=== PATIENT | female | born 1980 | race African-American/Black ===

== ENCOUNTER 2024-08-20 23:15 | Inpatient (IN) | payer MEDICARE, MEDICAID, SELFPAY ==
--- NOTE | ~2024-08-20 | XR_ITS ---
EXAMINATION: XR chest 1V portable DATE: 08/20/2024 23:49 INDICATION: Shortness of breath. TECHNIQUE: A single frontal view of the chest was obtained. COMPARISON: None. FINDINGS: The lung volumes are small. There are airspace opacities in the perihilar regions and lower lung zones. No pleural effusion or pneumothorax. The heart size is normal. Shrapnel overlies the nec k and right supraclavicular region. IMPRESSION: 1. Small lung volumes with airspace opacities in the perihilar regions and lower lung zones, consiste nt with atelectasis versus pneumonia. 2. Shrapnel overlying the neck and right supraclavicular region. Reviewed, dictated and finalized at location A. PACKER IMPRESSION: 1. Small lung volumes with airspace opacities in the perihilar regions and lowe r lung zones, consistent with atelectasis versus pneumonia. 2. Shrapnel overlying the neck and right supraclavicular region.
--- NOTE | ~2024-08-20 | XR_ITS ---
EXAMINATION: XR abdomen/kub 1V DATE: 08/21/2024 18:00 INDICATION: Adynamic ileus. TECHNIQUE: A supine view of the abdomen on 2 radiographs was obtained. COMPARISON: None. FINDINGS: There are no dilated loops of bowel. There is a small volume of stool in the colon. IMPRESSION: 1. Normal bowel gas pattern. Reviewed, dictated and finalized at location A. R MOLDER
[2024-08-20 23:21] VITALS: BP 153/95; PULSE 83; RESP 22; O2SAT 100
[2024-08-20 23:26] LABS: Glucose Point of Care 72 mg/dl (65-105)
[2024-08-21] VITALS (37 sets, daily range): BP systolic 99–188; BP diastolic 56–101; PULSE 66–99; RESP 7–20; TEMP 36.4–37.5; O2SAT 94–100; BMI 35.9
--- NOTE | 2024-08-21 00:52 | ED.GENADULT ---
HPI - General Adult General Chief complaint: Unspecified Stated complaint: leg pain Time Seen by Provider: 08/20/24 23:25 History of Present Illness HPI narrative: Patient is a 43-year-old female who presents to the emergency department this morning with multiple complaints. Patient states that [facility] and due to insurance issues and has not had a her dialysis for an entire week stating that she missed at least 3 sessions. Patient has bilateral lower extremity amputations and is complaining of some phantom pain. Patient also states that she has been having generalized weakness, and flu-like symptoms. Admits to nausea, vomiting and diarrhea and shortness of breath. Patient states that she does not make urine. Denies any chest pain. Denies any additional symptoms or concerns at this time. Related Data Allergies Allergy/AdvReac Type Severity Reaction Status Date / Time oxycodone AdvReac Hives Verified 08/20/24 23:26 Review of Systems Review of Systems: All systems are reviewed and are negative unless stated otherwise in the HPI. [facility] Family History Family History (Updated 08/21/24 @ 04:35 by Wes Killian RN) Father Lung cancer Mother Breast cancer Exam Narrative: General: Alert, awake, afebrile, poor hygiene. HEENT: PERRL, no rhinorrhea, no post nasal drip, oropharynx clear. Neck: Trachea midline, no JVD, no lymphadenopathy. Cardiovascular: Regular rate and rhythm, no murmurs, rubs or gallops, no peripheral edema. Respiratory: Clear to auscultation bilaterally, no tachypnea, no wheezing, no rhonchi, no rubs, no respiratory distress. Abdomen: Soft, nontender, nondistended, no rebound, no guarding, no peritoneal signs. Musculoskeletal: Bilateral lower extremity amputations. Skin: Chronic wounds to the bilateral lower extremity. Psychiatric: Alert and oriented, normal behavior and judgment for situation. Neurological: Alert and oriented to person, place, and time. Follows all commands. No focal deficits, speech is clear and fluent. Course Vital Signs Vital signs: Vital Signs Pulse Rate 83 08/20/24 23:21 Respiratory Rate 22 H 08/20/24 23:21 Blood Pressure 153/95 H 08/20/24 23:21 Pulse Oximetry 100 08/20/24 23:21 Oxygen Delivery Room Air 08/20/24 23:21 Pulse Rate 78 08/21/24 04:16 Respiratory Rate 12 08/21/24 04:16 Blood Pressure 100/63 08/21/24 04:16 Pulse Oximetry 99 08/21/24 04:16 Oxygen Delivery Room Air 08/20/24 23:21 Medical Decision Making MDM Narrative Medical decision making narrative: The patient was evaluated by myself in the emergency department. History is obtained from patient who is an independent historian and physical exam was performed. External medical records were reviewed at this time. Patient was administered oral Tylenol 1000mg. EKG was obtained at this time internally interpreted by me revealing sinus rhythm rate of 80 beats per minute, no evidence of acute ischemia. EKG pending official cardiology read. Laboratory results obtained revealing BUN 68, creatinine 10.7, potassium 5.2. Imaging studies obtained included CXR which was independently interpreted by me revealing bilateral perihilar and lower lung field opacities consistent with atelectasis versus pneumonia, which is pending final radiology interpretation. At this time patient was started on antibiotics to cover her for pneumonia with oral doxycycline and cefuroxime. Multiple attempts to obtain an IV were unsuccessful. Patient informed RN that she normally requires PICC line placement. Differential diagnosis considerations include fluid overload, hyperkalemia, acute viral syndrome. Comorbidities impacting this visit include end-stage renal disease on HD. I have evaluated and discussed social determinants of health with the patient that could potentially impact subsequent diagnosis and treatment plans. On repeat assessment of the patient, reevaluation revealed that the patient is doing well and is in no acute distress. Patient symptoms have improved since she arrived to our emergency department. Repeat vital signs were all reviewed and noted to be stable. Differential diagnosis and treatment plan were discussed with the patient at bedside. Patient agrees with discussion and after shared medical decision making agrees with admission. All questions were answered to the patient's satisfaction. Case was discussed with the on-call hospitalist Dr. Stanford at 0330 regarding admission for nephrology consultation as patient will need hemodialysis in the morning. She is aware the patient does not have an IV. Patient does have a dialysis fistula to her right upper extremity. Dr. Batista was paged at 0300 to be notified regarding patient needing hemodialysis. Formal consultation placed in the chart. Patient was admitted in stable condition. Vital Signs Vital Signs: Vital Signs Pulse Rate 83 08/20/24 23:21 Respiratory Rate 22 H 08/20/24 23:21 Blood Pressure 153/95 H 08/20/24 23:21 Pulse Oximetry 100 08/20/24 23:21 Oxygen Delivery Room Air 08/20/24 23:21 Pulse Rate 78 08/21/24 04:16 Respiratory Rate 12 08/21/24 04:16 Blood Pressure 100/63 08/21/24 04:16 Pulse Oximetry 99 08/21/24 04:16 Oxygen Delivery Room Air 08/20/24 23:21 Lab Data 08/21/24 02:33 08/21/24 02:33 Labs: Lab Results 08/20/24 08/21/24 Range/Units 23:24 02:33 WBC 7.6 (4.5-10.0) K/mm3 RBC 4.14 L (4.2-5.4) M/mm3 Hgb 12.8 (12.0-15.0) g/dL Hct 39.3 (37.0-47.0) % MCV 94.9 (80-100) fl MCH 30.9 (26-34) pg MCHC 32.6 (32-36) g/dl RDW 13.1 (11.5-14.5) % Plt Count 239 (150-375) k/mm3 MPV 9.7 (7.4-10.4) fl Immature Gran % (Auto) 0.4 (0-0.5) % Neut % (Auto) 61.5 (45.5-73.1) % Lymph % (Auto) 24.0 (18.3-44.2) % [place] % (Auto) 7.5 (2.6-8.5) % Eos % (Auto) 6.1 H (0-4.4) % Baso % (Auto) 0.5 (0.2-1.2) % Lymph # (Auto) 1.81 (0.9-3.2) K/mm3 [place] # (Auto) 0.6 (0.1-0.6) K/mm3 Eos # (Auto) 0.5 H (0-0.3) K/mm3 Baso # (Auto) 0.0 (0.0-0.1) K/mm3 Abs Immat Gran (auto) 0.03 (0.00-0.031) K/mm3 Absolute Neuts (auto) 4.6 (1.3-6.7) K/mm3 Absolute Nucleated RBC 0.000 (0.0-0.012) K/mm3 Nucleated RBC % 0.0 (0.0-0.2) % Sodium 136 L (137-145) mmol/L Potassium 5.2 H (3.4-5.0) mmol/L Chloride 101 (98-107) mmol/L Carbon Dioxide 23 (22-30) mmol/L Anion Gap 12 (4-12) mmol/L BUN 68 H (7-17) mg/dL Creatinine 10.70 H (0.7-1.0) mg/dL Estim Creat Clear Calc 8 ml/min Estimated GFR 5 L (59 - ) Glucose 86 (65-110) mg/dL POC Capillary Glucose 72 (65-105) mg/dl Lactic Acid 1.1 (0.7-2.0) mmol/L Calcium 9.8 (8.4-10.2) mg/dL Magnesium 2.1 (1.6-2.3) mg/dL Total Bilirubin 0.6 (0.2-1.3) mg/dL AST 24 (14-36) U/L ALT 13 (6-35) U/L Alkaline Phosphatase 238 H (38-126) U/L Total Protein 8.0 (6.3-8.2) g/dL Albumin 3.9 (3.5-5.1) g/dL Lipase 123 (23-300) U/L Serum HCG, Qual Negative Influenza A (RT-PCR) Negative (Negative) Influenza B (RT-PCR) Negative (Negative) SARS-CoV-2 RNA (RT-PCR) Negative (Negative) Discharge Plan Discharge Clinical Impression: End-stage renal disease on hemodialysis, Medical non-compliance Patient Disposition: Still a Patient Condition: Stable Time of Disposition: 03:52
--- NOTE | 2024-08-21 01:26 | ECG_ITS ---
Test Date: 2024-08-21 01:26:46 Measurements Intervals [place] Rate: 80 P: 40 MA: 186 QRS: 6 QRSD: 69 T: 54 QT: 357 QTc: 414 Interpretive Statements SINUS RHYTHM DELAYED PRECORDIAL R/S TRANSITION BORDERLINE ST ABNORMALITY- HIGH LATERAL LEADS BASELINE ARTIFACT- I, II BORDERLINE ECG No previous ECG available for comparison Electronically Signed On 08-21-2024 07:36:16 CRO by Ranjit Gautam D.O.
[2024-08-21 02:39] LABS: Basophils Percent Auto 0.5 % (0.2-1.2); Eosinophils Absolute Auto 0.5 K/mm3 (0-0.3); Eosinophils Percent Auto 6.1 % (0-4.4); Hematocrit 39.3 % (37.0-47.0); Hemoglobin 12.8 g/dL (12.0-15.0); Immature Granulocyte Absolute 0.03 K/mm3 (0.00-0.031); Immature Granulocyte Percent A 0.4 % (0-0.5); Lymphocytes Absolute Auto 1.81 K/mm3 (0.9-3.2); Mean Corpuscular HGB Conc 32.6 g/dl (32-36); Mean Corpuscular Hemoglobin 30.9 pg (26-34); Mean Corpuscular Volume 94.9 fl (80-100); Mean Platelet Volume 9.7 fl (7.4-10.4); Monocytes Absolute Auto 0.6 K/mm3 (0.1-0.6); Monocytes Percent Auto 7.5 % (2.6-8.5); Neutrophils Absolute Auto 4.6 K/mm3 (1.3-6.7); Neutrophils Percent Auto 61.5 % (45.5-73.1); Platelet Count Result 239 k/mm3 (150-375); Red Blood Count 4.14 M/mm3 (4.2-5.4); Red Cell Distribution Width 13.1 % (11.5-14.5); White Blood Count 7.6 K/mm3 (4.5-10.0)
--- NOTE | 2024-08-21 02:40 | PC.NURSE ---
pt does not make urine, [facility] notified.
--- NOTE | 2024-08-21 02:40 | PC.NURSE ---
this rn attempted iv x 4, with 2 other rn attempting as well. no success. pavel rubin aware.
[2024-08-21 02:52] LABS: Albumin Level 3.9 g/dL (3.5-5.1); Bilirubin,Total 0.6 mg/dL (0.2-1.3); Blood Urea Nitrogen 68 mg/dL (7-17); Calcium 9.8 mg/dL (8.4-10.2); Glucose 86 mg/dL (65-110); Lactic Acid Reflex 1.1 mmol/L (0.7-2.0); Magnesium 2.1 mg/dL (1.6-2.3)
[2024-08-21 02:53] LABS: Alanine Aminotransferase 13 U/L (6-35); Alkaline Phosphatase 238 U/L (38-126); Anion Gap 12 mmol/L (4-12); Aspartate Amino Transferase 24 U/L (14-36); Carbon Dioxide 23 mmol/L (22-30); Chloride 101 mmol/L (98-107); Lipase 123 U/L (23-300); Potassium 5.2 mmol/L (3.4-5.0); Sodium 136 mmol/L (137-145)
[2024-08-21 03:00] LABS: Estimated CRCL calculation 8 ml/min; Estimated Glomerular Filt Rate 5
[2024-08-21 03:10] LABS: SPREG INTERNAL CONTROL Positive; Serum Qual hCG Negative
--- NOTE | 2024-08-21 03:23 | PM.IMHP ---
H&P: HPI History of Present Illness Date/Time: 08/21/24 03:23 Chief Complaint: Weakness Narrative: This is a 43-year-old female with past medical history significant for end-stage renal disease on hemodialysis, peripheral vascular disease bilateral [id number] amputations, peripheral neuropathy, chronic pain syndrome. Patient presents to the emergency room due to generalized weakness has not had dialysis treatment in the last week or so recently discharged from detention. At the time of my visit patient is complaining of bilateral stump pain. Preliminary workup was significant for chest x-ray with infiltrates. Chemistry panel showed BUN of 68 creatinine of 10 potassium 5.2 Patient has been admitted for further evaluation management. EXAMINATION: XR chest 1V portable DATE: 08/20/2024 23:49 INDICATION: Shortness of breath. TECHNIQUE: A single frontal view of the chest was obtained. COMPARISON: None. FINDINGS: The lung volumes are small. There are airspace opacities in the perihilar regions and lower lung zones. No pleural effusion or pneumothorax. The heart size is normal. Shrapnel overlies the neck and right supraclavicular region. IMPRESSION: 1. Small lung volumes with airspace opacities in the perihilar regions and lower lung zones, consistent with atelectasis versus pneumonia. 2. Shrapnel overlying the neck and right supraclavicular region. Review of Systems Review of Systems: Bilateral stump pain, generalized weakness, has not been to dialysis in the last week or so [facility] Past Medical History Medical History (Updated 08/21/24 @ 18:12 by Xavier Valencia MD) Diabetes mellitus Family History Family History (Updated 08/21/24 @ 04:35 by Wes Killian RN) Father Lung cancer Mother Breast cancer Social History Social History Additional smoking assessment comments: patient vapes Alcohol intake: never Substance use: never Substance use type: does not use Do You Feel Safe in your Home?: Yes Lack of Transportation: YES Lack of Food: Often True Current Housing: I Do Not Have Housing Concerned About Future Housing: YES Difficulty Paying Gas/Electric Bills: No Difficulty Paying for Meds: YES Currently Unemployed: YES Education: Decline to Answer Difficulty w/ Childcare or Family Care: No Spiritual care concerns: No Meds Home Medications and Allergies Home Medications Medication Instructions Recorded Confirmed Type Abilify 5 mg PO DAILY 08/21/24 08/21/24 History Colace Clear 50 mg PO BID 08/21/24 08/21/24 History Milk of Magnesia 30 ml PO DAILY PRN Constipation 08/21/24 08/21/24 History Protonix 40 mg PO DAILY 08/21/24 08/21/24 History Renal Multivitamin Formula 1 tablet PO DAILY 08/21/24 08/21/24 History Saccharomyces boulardii 250 mg PO BID 08/21/24 08/21/24 History Sinemet 1 tablet PO BID 08/21/24 08/21/24 History acetaminophen 1,000 mg PO DAILY 08/21/24 08/21/24 History albuterol sulfate 1 vial inhalation Q6H PRN sob 08/21/24 08/21/24 History atorvastatin 40 mg PO DAILY 08/21/24 08/21/24 History calcium carbonate 1 tablet PO Q8H PRN Indigestion 08/21/24 08/21/24 History cinacalcet 30 mg PO 3XW 08/21/24 08/21/24 History clopidogrel 75 mg PO DAILY 08/21/24 08/21/24 History guaifenesin 10 ml PO Q6H PRN Cough 08/21/24 08/21/24 History loperamide 2 mg PO Q4H PRN Diarrhea 08/21/24 08/21/24 History loratadine 10 mg PO Q48H 08/21/24 08/21/24 History magnesium hydroxide 311 mg PO DAILY PRN Constipation 08/21/24 08/21/24 History melatonin 5 mg PO HS 08/21/24 08/21/24 History midodrine 10 mg PO Q6H PRN Hypotension 08/21/24 08/21/24 History mirtazapine 30 mg PO HS 08/21/24 08/21/24 History morphine 15 mg PO Q4H 08/21/24 08/21/24 History naloxone 4 mg intranasal Q2-3M 08/21/24 08/21/24 History nystatin 1 applic topical Q12H 08/21/24 08/21/24 History ondansetron 4 mg PO Q4H PRN Nausea 08/21/24 08/21/24 History polyethylene glycol 3350 17 g PO DAILY PRN Constipation 08/21/24 08/21/24 History pregabalin 25 mg PO HS 08/21/24 08/21/24 History ropinirole 0.75 mg PO HS 08/21/24 08/21/24 History sennosides 8.6 mg PO DAILY PRN Constipation 08/21/24 08/21/24 History sertraline 100 mg PO DAILY 08/21/24 08/21/24 History sevelamer HCl 2,400 mg PO TID 08/21/24 08/21/24 History Allergies Allergy/AdvReac Type Severity Reaction Status Date / Time chlorhexidine Allergy Unknown Verified 08/21/24 06:41 codeine Allergy Unknown Verified 08/21/24 06:41 gabapentin Allergy Unknown Verified 08/21/24 06:41 hydrocodone Allergy Unknown Verified 08/21/24 06:41 tramadol Allergy Unknown Verified 08/21/24 06:41 oxycodone AdvReac Hives Verified 08/20/24 23:26 Vital Signs Vital Signs - 24 hr 08/20/24 23:21 08/21/24 02:50 08/21/24 02:37 Pulse Rate 83 69 78 Respiratory Rate 22 H 15 Blood Pressure 153/95 H Pulse Oximetry 100 Oxygen Delivery Room Air 08/21/24 02:53 08/21/24 03:00 08/21/24 03:01 Pulse Rate 67 66 66 Respiratory Rate 9 L 9 L 11 L Blood Pressure 103/64 Pulse Oximetry 94 Oxygen Delivery Exam Narrative: Patient is laying in a stretcher Const: General: comfortable, no acute distress, well developed, alert, awake, ill appearing chronically and edematous Nutritional Appearance: edematous Orientation/consciousness: patient oriented x3 HENMT: Head: normal to inspection, normocephalic and atraumatic Ears: hearing grossly normal bilaterally Face/Nose/Sinus: normal facial exam Face and sinus: normal facial exam Eyes: General: appearance normal, both eyes and all related structures Pupils: Equal, round and reactive pupils present EOM: EOMs intact bilaterally Neck: Neck: full ROM, no lymphadenopathy and no JVD Thyroid: thyroid normal Lymphatic: no lymphadenopathy noted Resp: Effort & Inspection: normal respiratory effort and able to speak in complete sentences Auscultation: clear to auscultation bilaterally Cardio: Jugular venous distension: no JVD Rate: regular rate Rhythm: regular rhythm Heart sounds: S1 normal heart sound present and S2 normal heart sound present GI: GI Palp: Yes Soft to palpation and Yes No hepatosplenomegaly present : General: Yes deferred Skin: Rashes: no rashes Wounds: no wounds Neuro: General: patient oriented x3 and CN's II-XI intact bilaterally Cranial nerves: Yes CN's II-XII intact bilaterally and Yes Equal, round and reactive pupils present Cognition (Neuro): normal cognition Speech: normal speech Gait exam (Neuro): Unable to assess gait Motor exam (neuro): 5/5 motor strength present throughout Extrem: General: normal to inspection, full ROM, no joint enlargement and no pedal edema Other: Bilateral BKA H&P: Results Labs Labs: Short CBC 08/21/24 Range/Units 02:33 WBC 7.6 (4.5-10.0) K/mm3 Hgb 12.8 (12.0-15.0) g/dL Hct 39.3 (37.0-47.0) % Plt Count 239 (150-375) k/mm3 BMP 08/21/24 02:33 Sodium 136 L Potassium 5.2 H Chloride 101 Carbon Dioxide 23 BUN 68 H Creatinine 10.70 H Glucose 86 Calcium 9.8 Liver Function 08/21/24 Range/Units 02:33 Total Bilirubin 0.6 (0.2-1.3) mg/dL AST 24 (14-36) U/L ALT 13 (6-35) U/L Alkaline Phosphatase 238 H (38-126) U/L Albumin 3.9 (3.5-5.1) g/dL Assessment and Plan Assessment and plan (1) End-stage renal disease on hemodialysis: Code(s): N18.6 - End stage renal disease; Z99.2 - Dependence on renal dialysis Status: Acute Assessment and Plan: Admit to IMU Nephrology consult Supportive care (2) Status post bilateral below knee amputation: Code(s): Z89.512 - Acquired absence of left leg below knee; Z89.511 - Acquired absence of right leg below knee Status: Acute Assessment and Plan: Supportive care Fall precautions PT OT (3) Chronic pain syndrome: Code(s): G89.4 - Chronic pain syndrome Status: Acute Assessment and Plan: Restart home meds Patient is on chronic opiate (4) Diabetes mellitus: Code(s): E11.9 - Type 2 diabetes mellitus without complications Status: Acute Hospitalist MIPS Advance Care Plan I have confirmed that the patient's Advanced Care Plan is present, code status is documented, or surrogate decision maker is listed in patient medical record.: Yes Medication Reconciliation I have utilized all available resources to obtain, update and review the patients current medications (includes all prescriptions, OTC, herbals, cannabis, and nutritional supplements).: Yes
[2024-08-21] MEDS: DOXYCYCLINE HYCLATE 100 MG TABLET PO (04:11)
[2024-08-21] MEDS: cefuroxime axetiL 250 MG TABLET 500 MG PO (04:12)
[2024-08-21 04:31] LABS: Influenza A QL RT-PCR Negative (Negative); Influenza B QL RT-PCR Negative (Negative); SARS-CoV-2 RNA PCR Negative (Negative)
--- NOTE | 2024-08-21 04:31 | ADMGEN ---
0425: This patient, Tammie Chappell, was admitted to IMU Room 206-02. Patient/family oriented to hospital policies and general routines including ID bracelet, bed and alarms, visiting hours, pain management, procedures, bathroom and other care routines, personal items, smoking policy, room service/diet, and visiting hours. Information on how to activate the Rapid Response Team has been discussed. Patient/Family are encouraged to report perceived risks to care and to ask questions if they do not understand what they are told or what they should do.
[2024-08-21] MEDS: MORPHINE SULFATE (*CRX) 15 MG TAB IR PO ×2 (04:35→13:57)
--- NOTE | 2024-08-21 04:36 | PC.NURSE ---
Patient states her CRISTY resolved after having gastric bypass.
--- NOTE | 2024-08-21 06:35 | PC.NURSE ---
0635: This RN attempted to obtain IV access but was unsuccessful. Vascular access contacted.
[2024-08-21 07:44] LABS: MRSA (PCR) DETECTED (NOT DETECTE)
--- NOTE | 2024-08-21 10:47 | P.CONNP_ITS ---
Assessment and Plan Assessment and plan (1) End stage renal disease: Code(s): N18.6 - End stage renal disease Status: Acute Assessment and Plan: * HD today * plan HD tomorrow as well given missed treatments this week * follow electrolytes, volume status, and clearance * care coordination assisting with transportation issues to/from dialysis (2) Generalized weakness: Code(s): R53.1 - Weakness Status: Acute Assessment and Plan: * possibly due to mild uremia (?) * missed ~ 1 week of dialysis prior to admission * no evidence of infection: * CXR not indicative of pneumonia * viral swabs for influenza/RSV/COVID negatibe * WBC normal * empirically dosed with antibiotics in the ER * continue supportive care (3) Abdominal pain: Code(s): R10.9 - Unspecified abdominal pain Status: Acute Assessment and Plan: * reports this in association with nausea/vomiting/diarrhea * however, symptoms better * related to missed dialysis (?) * continue supportive therapy (4) Chronic pain syndrome: Code(s): G89.4 - Chronic pain syndrome Status: Acute Assessment and Plan: * contributing to #2 (?) * does take chronic narcotics * follow for now (5) Anemia: Code(s): D64.9 - Anemia, unspecified Status: Chronic Assessment and Plan: * due to ESRD * H/H supratherapeutic at this time * hold Retacrit with dialysis * follow trend of H/H (6) Diabetes mellitus: Code(s): E11.9 - Type 2 diabetes mellitus without complications Status: Chronic Assessment and Plan: * diet controlled following gastric bypass surgery * follow accu-cheks * glycemic control per hospitalist I will continue to follow the patient with you while she remains hospitalized and make further recommendations as deemed necessary. Thank you for allowing me to participate in the care of this patient. History of Present Illness Reason for Consult Consult date: 08/21/24 Reason for consult: end stage renal disease Chief Complaint Chief complaint: Needs HD History of Present Illness Narrative: The patient is a 43-year-old female with a past medical history as outlined below who presented to [facility] Emergency Room with complaints of generalized weakness. The patient apparently was recently discharged from a nursing facility in [facility] and recently moved to this area. Although I am not clear on the specifics, when she moved to this area and arranged for her outpatient dialysis treatments, transportation to and from her dialysis treatments for not finalized. Because of this issue, she states that she has not had dialysis for almost a week. Further complaints include bilateral stump pain thought to be secondary to her neuropathic pain and increasing weakness and fatigue in general. Given these constellation of symptoms, she presented to the emergency room for further assessment. Workup and evaluation emergency room demonstrated the patient be hemodynamically stable and afebrile. Routine blood test demonstrated labs consistent with her known history of end-stage renal disease without any critical electrolyte abnormalities or significant anemia. Her chest x-ray was suggestive of some infiltrates. Her BUN and creatinine were quite elevated but this is suspected to be secondary to her missed dialysis treatments. Surprisingly, despite the fact that she has not had dialysis in almost a week, her volume status was relatively stable. She was subsequently admitted to the hospital for further evaluation and therapy. Renal consultation was requested due to her end-stage renal disease. As mentioned above, the patient has apparently not had dialysis for the last week due to transportation issues. She was receiving dialysis 3 times week when she was living in [place] but apparently since her move to the [facility], this has not occurred. She was scheduled to receive dialysis on a Sunday, Sunday, Sunday dialysis schedule at [facility] but she has yet to actually receive a treatment there as of yet. The social welfare clerk at the dialysis center has been attempting to finalize the patient's transportation issues as the dialysis clinic was not aware that her transportation had not been set up until recently. Currently, at the time my evaluation, the patient is receiving dialysis (seen on HD 10:35AM) and appears to be in no acute distress. Review of Systems Review of Systems: As per HPI. PMFSH Past Medical History Medical History (Updated 08/24/24 @ 13:02 by Naomie Batista MD) Anemia Chronic pain syndrome Diabetes mellitus End stage renal disease PVD (peripheral vascular disease) Surgical History Surgical History (Updated 08/24/24 @ 13:02 by Naomie Batista MD) Status post bilateral below knee amputation Family History Family History (Updated 08/21/24 @ 04:35 by Wes Killian RN) Father Lung cancer Mother Breast cancer Social History Social History Additional smoking assessment comments: patient vapes Alcohol intake: never Substance use: never Substance use type: does not use Do You Feel Safe in your Home?: Yes Lack of Transportation: YES Lack of Food: Often True Current Housing: I Do Not Have Housing Concerned About Future Housing: YES Difficulty Paying Gas/Electric Bills: No Difficulty Paying for Meds: YES Currently Unemployed: YES Education: Decline to Answer Difficulty w/ Childcare or Family Care: No Spiritual care concerns: No Meds Home Medications and Allergies Home Medications Medication Instructions Recorded Confirmed Type Abilify 5 mg PO DAILY #30 tabs 08/22/24 Rx Colace Clear 50 mg PO BID #60 tabs 08/22/24 Rx Renal Multivitamin Formula 1 tablet PO DAILY #30 tabs 08/22/24 Rx Sinemet 1 tablet PO BID #60 tabs 08/22/24 Rx acetaminophen 325 mg tablet 650 mg PO Q6H PRN Pain #30 tabs 08/22/24 Rx albuterol sulfate 90 mcg/actuation 2 puff inhalation QID PRN 08/22/24 Rx aerosol inhaler shortness of breath or wheezing #6.7 grams atorvastatin 40 mg PO DAILY #30 tabs 08/22/24 Rx cinacalcet 30 mg PO 3XW #12 tabs 08/22/24 Rx clopidogrel 75 mg PO DAILY #30 tabs 08/22/24 Rx midodrine 10 mg PO Q6H PRN Hypotension #10 08/22/24 Rx tabs mirtazapine 30 mg PO HS #30 tabs 08/22/24 Rx ropinirole 0.75 mg PO HS #90 tabs 08/22/24 Rx sertraline 100 mg PO DAILY #30 tabs 08/22/24 Rx sevelamer HCl 2,400 mg PO TID 30 days #270 tabs 08/22/24 Rx Allergies Allergy/AdvReac Type Severity Reaction Status Date / Time chlorhexidine Allergy Unknown Verified 08/21/24 06:41 codeine Allergy Unknown Verified 08/21/24 06:41 gabapentin Allergy Unknown Verified 08/21/24 06:41 tramadol Allergy Unknown Verified 08/21/24 06:41 oxycodone AdvReac Hives Verified 08/20/24 23:26 Vital Signs Vital Signs Temp Pulse Resp BP Pulse Ox O2 Del Method FiO2 08/21/24 08:26 97.6 F 78 16 129/67 98 11/21/24 08:26 98 08/21/24 08:00 97 Room Air 08/21/24 08:00 97.6 F 69 16 124/72 97 08/21/24 06:17 Room Air 08/21/24 06:00 78 08/21/24 04:30 97.8 F 90 20 163/101 H 100 08/21/24 04:04 78 12 99 08/21/24 03:45 72 17 08/21/24 03:38 76 9 L 08/21/24 03:17 68 7 L 08/21/24 03:02 66 10 L 08/21/24 04:16 78 12 100/63 99 08/21/24 03:01 66 11 L 103/64 94 08/21/24 03:00 66 9 L 08/21/24 02:53 67 9 L 08/21/24 02:37 78 15 08/21/24 02:50 69 08/20/24 23:21 83 22 H 153/95 H 100 Room Air Exam Narrative: GENERAL APPEARANCE: well developed well nourished female in no acute distress HEENT: normocephalic, atraumatic, normal conjunctiva and sclera, nares patient NECK: no lymphadenopathy, thyromegaly, or JVD MOUTH: normal lips, teeth, and gums CARDIOVASCULAR: RRR, normal S1 and S2, no rub RESPIRATORY: clear to auscultation bilaterally ABDOMEN: soft, mild TTP; positive bowel sounds present EXTREMITIES: no evidence of cyanosis, clubbing, or edema; s/p bilateral BKA NEUROLOGICAL: alert and oriented x 3; CN II - XII intact bilaterally; no focal deficits noted Results Lab Results 08/24/24 06:47 08/24/24 06:47 Lab results: Most recent lab results Calcium 9.8 mg/dL (8.4-10.2) 08/21/24 02:33 Magnesium 2.1 mg/dL (1.6-2.3) 08/21/24 02:33
[2024-08-21 11:20] LABS: Hepatitis B Surface Antigen Negative (Negative)
[2024-08-21 11:38] LABS: Hepatitis B Surface Anti Res Negative
[2024-08-21] MEDS: ACETAMINOPHEN 500 MG TABLET 1000 MG PO (12:46)
[2024-08-21] MEDS: PANTOPRAZOLE 40 MG TABLET PO (12:47)
[2024-08-21] MEDS: ARIPiprazole 5 MG TABLET PO (12:47)
[2024-08-21] MEDS: SACCHAROMYCES BOULARDII 250 MG CAPSULE PO ×2 (12:47→17:05)
[2024-08-21] MEDS: VITAMIN B CMPLX/VIT C/FOLIC AC 1 CAPSULE 1 CAP PO (12:47)
[2024-08-21] MEDS: CARBIDOPA/LEVODOPA 25/100 MG TABLET 1 TABLET PO ×2 (12:47→17:04)
[2024-08-21] MEDS: SERTRALINE HCL 50 MG TABLET 100 MG PO (12:47)
[2024-08-21] MEDS: ATORVASTATIN 40 MG TABLET PO (12:47)
[2024-08-21] MEDS: CLOPIDOGREL BISULFATE 75 MG TABLET PO (12:47)
[2024-08-21] MEDS: HEPARIN SODIUM 5,000 UNITS/ML VIAL 5000 UNITS SUB-Q (12:48)
[2024-08-21] MEDS: DOCUSATE SODIUM LIQ 100 MG/10 ML UDC 50 MG PO (12:48)
[2024-08-21] MEDS: SEVELAMER CARBONATE 800 MG TABLET 2400 MG PO ×2 (12:48→17:05)
--- NOTE | 2024-08-21 13:24 | PM.IMPN ---
Progress Note: A&P Assessment and Plan (1) End-stage renal disease on hemodialysis: Code(s): N18.6 - End stage renal disease; Z99.2 - Dependence on renal dialysis Status: Acute Assessment and Plan: Patient presents emergency room because of weakness. She states that she was unable to do dialysis because of lack of transportation. She also was having difficulty getting out of her house but now has a ramp that has been built. Chest x-ray noted and suspect more likely atelectasis or even pulmonary edema from her lack of dialysis than pneumonia. White count is normal. Influenza and COVID negative. She tolerated dialysis today. Nephrology consulted appreciate their input. Antibiotics started no clear evidence of infection. Continue supportive care. Stop antibiotics (2) Status post bilateral below knee amputation: Code(s): Z89.512 - Acquired absence of left leg below knee; Z89.511 - Acquired absence of right leg below knee Status: Acute Assessment and Plan: Supportive care Fall precautions PT OT (3) Chronic pain syndrome: Code(s): G89.4 - Chronic pain syndrome Status: Acute Assessment and Plan: Patient with chronic pain. Chronic narcotics could be contributing to her weakness. Resume home medications. Monitor for now. (4) Abdominal pain: Code(s): R10.9 - Unspecified abdominal pain Status: Acute Assessment and Plan: Patient with abdominal pain diffusely. She has been having diarrhea, nausea and vomiting. The nausea and vomiting appears to be improved and she is tolerating oral intake. She states she is still having diarrhea although no bowel movements documented here. KUB has been taken with results pending but no obvious ileus noted on preliminary reading. test negative. White count is normal. No fevers. Monitor for now but consider CT of the abdomen pelvis if symptoms persist or worsen. (5) Diabetes mellitus: Code(s): E11.9 - Type 2 diabetes mellitus without complications Status: Acute Assessment and Plan: Patient has diet-controlled diabetes. Since her gastric bypass, her diabetes has been much better controlled. Start sliding scale protocol. Check A1c. (6) Medical non-compliance: Code(s): Z91.199 - Patient's noncompliance with other medical treatment and regimen due to unspecified reason Status: Acute Assessment and Plan: She was encouraged to be compliant with her dialysis treatments. Plan DVT prophylaxis -heparin Code status -full Subjective Date/time seen: 08/21/24 13:24 Interval history: 43yo female with ESRD, PAD s/p bilateral BKA, peripheral neuropathy and chronic pain syndrome here for weakness. Complains of abd pain. No CP or SOB. Has been having diarrhea. No recent abx usage. Diarreha for about 2-3 days. She does not make urine. Sick contact at home with diarrhea. Had n/v but better now. At [facility]. No melana or hematochezia. Exam Narrative: AF 97.6 188/89 99 16 98% ra Gen - NARD Chest - CTA bilaterally, nml RR CV - RRR S1/S2. Tele showing no significant dysrhythmias Abd - Soft, diffusely tender without guarding. Ext - bilateral BKA. Thrill and bruit to Rt UE fistula Psych - Nml mood and affect Skin - Warm and dry. small area of thin but intact scar left stump o/w stump is clean and dry. Objective Data Vital Signs Vital Signs: Vital Signs - 24 hr 08/20/24 23:21 08/21/24 02:50 08/21/24 02:37 Temperature Pulse Rate 83 69 78 Respiratory Rate 22 H 15 Blood Pressure 153/95 H Pulse Oximetry 100 Oxygen Delivery Room Air Fraction of Inspired Oxygen 08/21/24 02:53 08/21/24 03:00 08/21/24 03:01 Temperature Pulse Rate 67 66 66 Respiratory Rate 9 L 9 L 11 L Blood Pressure 103/64 Pulse Oximetry 94 Oxygen Delivery Fraction of Inspired Oxygen 08/21/24 04:16 08/21/24 03:02 08/21/24 03:17 Temperature Pulse Rate 78 66 68 Respiratory Rate 12 10 L 7 L Blood Pressure 100/63 Pulse Oximetry 99 Oxygen Delivery Fraction of Inspired Oxygen 08/21/24 03:38 08/21/24 03:45 08/21/24 04:04 Temperature Pulse Rate 76 72 78 Respiratory Rate 9 L 17 12 Blood Pressure Pulse Oximetry 99 Oxygen Delivery Fraction of Inspired Oxygen 08/21/24 04:30 08/21/24 06:00 08/21/24 06:17 Temperature 97.8 F Pulse Rate 90 78 Respiratory Rate 20 Blood Pressure 163/101 H Pulse Oximetry 100 Oxygen Delivery Room Air Fraction of Inspired Oxygen 08/21/24 08:00 08/21/24 08:00 08/21/24 08:26 Temperature 97.6 F Pulse Rate 69 Respiratory Rate 16 Blood Pressure 124/72 Pulse Oximetry 97 97 Oxygen Delivery Room Air Fraction of Inspired Oxygen 98 08/21/24 08:26 08/21/24 08:00 08/21/24 10:00 Temperature 97.6 F Pulse Rate 78 72 76 Respiratory Rate 16 Blood Pressure 129/67 Pulse Oximetry 98 Oxygen Delivery Fraction of Inspired Oxygen 08/21/24 08:35 08/21/24 08:45 08/21/24 09:00 Temperature Pulse Rate 66 66 68 Respiratory Rate Blood Pressure 129/68 118/66 141/72 H Pulse Oximetry Oxygen Delivery Fraction of Inspired Oxygen 08/21/24 09:15 08/21/24 09:30 08/21/24 09:45 Temperature Pulse Rate 78 79 74 Respiratory Rate Blood Pressure 125/80 143/77 H 123/73 Pulse Oximetry Oxygen Delivery Fraction of Inspired Oxygen 08/21/24 10:00 08/21/24 10:15 08/21/24 10:30 Temperature Pulse Rate 74 78 80 Respiratory Rate Blood Pressure 106/60 125/70 110/56 L Pulse Oximetry Oxygen Delivery Fraction of Inspired Oxygen 08/21/24 10:45 08/21/24 11:00 08/21/24 11:15 Temperature Pulse Rate 77 74 79 Respiratory Rate Blood Pressure 127/64 111/57 L 104/63 Pulse Oximetry Oxygen Delivery Fraction of Inspired Oxygen 08/21/24 11:30 08/21/24 11:45 Temperature Pulse Rate 90 99 Respiratory Rate Blood Pressure 155/94 H 188/89 H Pulse Oximetry Oxygen Delivery Fraction of Inspired Oxygen Intake/Output Intake/Output: Intake & Output 08/18/24 08/19/24 08/20/24 08/21/24 23:59 23:59 23:59 23:59 Output Total 0 Balance 0 Meds/Results Medications: Active Medications Generic Name Dose Route Start Last Admin Trade Name Freq PRN Reason Stop Dose Admin Acetaminophen 1,000 mg 08/21/24 09:00 08/21/24 12:46 Acetaminophen 500 Mg Tablet PO 09/20/24 08:59 1,000 mg DAILY MARLINE Administration Albuterol 2.5 mg 08/21/24 05:53 Albuterol Sulfate Neb 2.5 Mg/3 Ml Inh INHALATION Q6HRT PRN sob Aripiprazole 5 mg 08/21/24 09:00 08/21/24 12:47 Aripiprazole 5 Mg Tablet PO 5 mg QAM MARLINE Administration Atorvastatin Calcium 40 mg 08/21/24 09:00 08/21/24 12:47 Atorvastatin 40 Mg Tablet PO 40 mg DAILY MARLINE Administration Calcium Carbonate 200 mg 08/21/24 05:18 Calcium Carbonate (Tums) 500 Mg (200 Mg Elemental) BY MOUTH Q8H PRN Indigestion Carbidopa/Levodopa 1 tablet 08/21/24 09:00 08/21/24 12:47 Carbidopa/Levodopa 25/100 Mg Tablet PO 1 tablet BID MARLINE Administration Cefuroxime Axetil 500 mg 08/21/24 21:00 Cefuroxime Axetil 250 Mg Tablet PO Q12HR MARLINE Cinacalcet 30 mg 08/22/24 09:00 Cinacalcet 30 Mg Tablet PO MoWeFr [facility] Clopidogrel Bisulfate 75 mg 08/21/24 09:00 08/21/24 12:47 Clopidogrel Bisulfate 75 Mg Tablet PO 75 mg QAM MARLINE Administration Docusate Sodium 50 mg 08/21/24 09:00 08/21/24 12:48 Docusate Sodium Liq 100 Mg/10 Ml Udc PO 50 mg BID MARLINE Administration Doxycycline Hyclate 100 mg 08/21/24 21:00 Doxycycline Hyclate 100 Mg Tablet PO Q12HR [facility] Heparin Sodium (Porcine) 5,000 units 08/21/24 09:00 08/21/24 12:48 Heparin Sodium 5,000 Units/Ml Vial SUB-Q 5,000 units Q12HR MARLINE Administration Albumin Human 50 mls @ 999 mls/hr 08/21/24 05:59 Albutein IVPB 08/22/24 05:58 Q10M PRN HYPOTENSION Loratadine 10 mg 08/21/24 05:25 Loratadine 10 Mg Tablet PO Q48H MARLINE Magnesium Hydroxide 30 ml 08/21/24 05:23 Magnesium Hydroxide Susp 30 Ml Udc PO DAILY PRN Constipation Melatonin 5 mg 08/21/24 21:00 Melatonin 5 Mg Tablet PO 09/20/24 20:59 HS MARLINE Midodrine 10 mg 08/21/24 05:21 Midodrine Hcl 10 Mg Tablet PO Q6H PRN Hypotension Mirtazapine 30 mg 08/21/24 21:00 Mirtazapine 15 Mg Tablet PO HS [facility] Miscellaneous Information 0 each 08/21/24 00:01 08/21/24 12:50 Loratadine Take Every 48 Hours When Is Next Dose Due? XX 09/20/24 00:00 Not Given CLARIFY MARLINE Morphine Sulfate 15 mg 08/21/24 04:29 08/21/24 04:35 Morphine Sulfate (*Crx) 15 Mg Tab Ir PO 15 mg Q4H PRN Administration Pain Rated 7-10 Ondansetron HCl 4 mg 08/21/24 05:04 Ondansetron Inj 4 Mg/2 Ml Vial IV PUSH Q6H PRN Nausea And Vomiting Ondansetron HCl 4 mg 08/21/24 07:56 Ondansetron Hcl Odt 4 Mg Tablet PO Q4H PRN Nausea Pantoprazole Sodium 40 mg 08/21/24 09:00 08/21/24 12:47 Pantoprazole 40 Mg Tablet PO 40 mg QAM [facility] Administration Polyethylene Glycol 17 gm 08/21/24 08:00 Polyethylene Glycol 3350 17 Gm Powd.Pack PO DAILY PRN Constipation Pregabalin 25 mg 08/21/24 21:00 Pregabalin (*Crx) 25 Mg Capsule PO HS MARLINE Ropinirole HCl 0.75 mg 08/21/24 21:00 Ropinirole Hcl 0.25 Mg Tablet PO HS MARLINE Saccharomyces Boulardii 250 mg 08/21/24 09:00 08/21/24 12:47 Saccharomyces Boulardii 250 Mg Capsule PO 250 mg BID MARLINE Administration Senna 8.6 mg 08/21/24 08:04 Sennosides 8.6 Mg Tablet PO DAILY PRN Constipation Sertraline HCl 100 mg 08/21/24 09:00 08/21/24 12:47 Sertraline Hcl 50 Mg Tablet PO 100 mg QAM [facility]LINE Administration Sevelamer Carbonate 2,400 mg 08/21/24 12:00 08/21/24 12:48 Sevelamer Carbonate 800 Mg Tablet PO 2,400 mg TIDWM [facility] Administration Vitamin B Complex/Folic Acid 1 cap 08/21/24 09:00 08/21/24 12:47 Vitamin B Cmplx/Vit C/Folic Ac 1 Capsule PO 1 cap QAM [facility] Administration Radiology Results: ITS Impressions Chest X-Ray 08/20/24 23:49 IMPRESSION: 1. Small lung volumes with airspace opacities in the perihilar regions and lower lung zones, consistent with atelectasis versus pneumonia. 2. Shrapnel overlying the neck and right supraclavicular region. Labs Labs: Laboratory Results - last 24 hr 08/20/24 08/21/24 08/21/24 23:24 02:33 06:06 WBC 7.6 RBC 4.14 L Hgb 12.8 Hct 39.3 MCV 94.9 MCH 30.9 MCHC 32.6 RDW 13.1 Plt Count 239 MPV 9.7 Immature Gran % (Auto) 0.4 Neut % (Auto) 61.5 Lymph % (Auto) 24.0 [place] % (Auto) 7.5 Eos % (Auto) 6.1 H Baso % (Auto) 0.5 Lymph # (Auto) 1.81 [place] # (Auto) 0.6 Eos # (Auto) 0.5 H Baso # (Auto) 0.0 Abs Immat Gran (auto) 0.03 Absolute Neuts (auto) 4.6 Absolute Nucleated RBC 0.000 Nucleated RBC % 0.0 Sodium 136 L Potassium 5.2 H Chloride 101 Carbon Dioxide 23 Anion Gap 12 BUN 68 H Creatinine 10.70 H Estim Creat Clear Calc 8 Estimated GFR 5 L Glucose 86 POC Capillary Glucose 72 Lactic Acid 1.1 Calcium 9.8 Magnesium 2.1 Total Bilirubin 0.6 AST 24 ALT 13 Alkaline Phosphatase 238 H Total Protein 8.0 Albumin 3.9 Lipase 123 Serum HCG, Qual Negative Nasal MRSA (PCR) Hep Bs Antigen Negative Hep Bs Antibody Negative Influenza A (RT-PCR) Negative Influenza B (RT-PCR) Negative SARS-CoV-2 RNA (RT-PCR) Negative 08/21/24 06:12 WBC RBC Hgb Hct MCV MCH MCHC RDW Plt Count MPV Immature Gran % (Auto) Neut % (Auto) Lymph % (Auto) [place] % (Auto) Eos % (Auto) Baso % (Auto) Lymph # (Auto) [place] # (Auto) Eos # (Auto) Baso # (Auto) Abs Immat Gran (auto) Absolute Neuts (auto) Absolute Nucleated RBC Nucleated RBC % Sodium Potassium Chloride Carbon Dioxide Anion Gap BUN Creatinine Estim Creat Clear Calc Estimated GFR Glucose POC Capillary Glucose Lactic Acid Calcium Magnesium Total Bilirubin AST ALT Alkaline Phosphatase Total Protein Albumin Lipase Serum HCG, Qual Nasal MRSA (PCR) Detected A* Hep Bs Antigen Hep Bs Antibody Influenza A (RT-PCR) Influenza B (RT-PCR) SARS-CoV-2 RNA (RT-PCR)
[2024-08-21 20:09] LABS: Glucose Point of Care 93 mg/dl (65-105)
[2024-08-21] MEDS: rOPINIRole HCL 0.25 MG TABLET 0.75 MG PO (21:32)
[2024-08-21] MEDS: MIRTAZAPINE 15 MG TABLET 30 MG PO (21:32)
[2024-08-21] MEDS: MELATONIN 5 MG TABLET PO (21:33)
[2024-08-21] MEDS: PREGABALIN (*CRX) 25 MG CAPSULE PO (21:33)
[2024-08-22] VITALS (22 sets, daily range): BP systolic 95–128; BP diastolic 54–74; PULSE 57–93; RESP 14–20; TEMP 36.2–37; O2SAT 95–100
[2024-08-22 04:37] LABS: Basophils Percent Auto 0.6 % (0.2-1.2); Eosinophils Absolute Auto 0.5 K/mm3 (0-0.3); Eosinophils Percent Auto 8.5 % (0-4.4); Hematocrit 39.1 % (37.0-47.0); Immature Granulocyte Absolute 0.01 K/mm3 (0.00-0.031); Immature Granulocyte Percent A 0.2 % (0-0.5); Lymphocytes Absolute Auto 1.76 K/mm3 (0.9-3.2); Lymphocytes Percent Auto 32.6 % (18.3-44.2); Mean Corpuscular HGB Conc 30.7 g/dl (32-36); Mean Corpuscular Volume 97.8 fl (80-100); Mean Platelet Volume 9.9 fl (7.4-10.4); Monocytes Absolute Auto 0.5 K/mm3 (0.1-0.6); Monocytes Percent Auto 8.3 % (2.6-8.5); Neutrophils Absolute Auto 2.7 K/mm3 (1.3-6.7); Neutrophils Percent Auto 49.8 % (45.5-73.1); Platelet Count Result 226 k/mm3 (150-375); White Blood Count 5.4 K/mm3 (4.5-10.0)
[2024-08-22 04:50] LABS: Hemoglobin A1C 4.6 % (<5.7)
[2024-08-22 04:54] LABS: Albumin Level 3.6 g/dL (3.5-5.1); Anion Gap 9 mmol/L (4-12); Blood Urea Nitrogen 35 mg/dL (7-17); CRP 0.7 mg/dL (<1.0); Carbon Dioxide 28 mmol/L (22-30); Chloride 102 mmol/L (98-107); Estimated CRCL calculation 13 ml/min; Estimated Glomerular Filt Rate 8; Glucose 73 mg/dL (65-110); Phosphorus 6.3 mg/dL (2.5-4.5); Potassium 4.6 mmol/L (3.4-5.0); Sodium 139 mmol/L (137-145)
[2024-08-22] MEDS: LORATADINE 10 MG TABLET PO (08:10)
[2024-08-22] MEDS: CLOPIDOGREL BISULFATE 75 MG TABLET PO (08:10)
[2024-08-22] MEDS: ACETAMINOPHEN 500 MG TABLET 1000 MG PO (08:10)
[2024-08-22] MEDS: SERTRALINE HCL 50 MG TABLET 100 MG PO (08:10)
[2024-08-22] MEDS: SEVELAMER CARBONATE 800 MG TABLET 2400 MG PO ×2 (08:10→17:11)
[2024-08-22] MEDS: CARBIDOPA/LEVODOPA 25/100 MG TABLET 1 TABLET PO ×2 (08:10→17:11)
[2024-08-22] MEDS: ARIPiprazole 5 MG TABLET PO (08:10)
[2024-08-22] MEDS: VITAMIN B CMPLX/VIT C/FOLIC AC 1 CAPSULE 1 CAP PO (08:10)
[2024-08-22] MEDS: PANTOPRAZOLE 40 MG TABLET PO (08:10)
[2024-08-22] MEDS: ATORVASTATIN 40 MG TABLET PO (08:10)
[2024-08-22] MEDS: DOCUSATE SODIUM LIQ 100 MG/10 ML UDC 50 MG PO ×2 (08:11→17:13)
[2024-08-22] MEDS: CINACALCET 30 MG TABLET PO (08:12)
[2024-08-22 08:20] LABS: Glucose Point of Care 76 mg/dl (65-105)
--- NOTE | 2024-08-22 08:47 | PC.NURSE ---
Pt left room 203 for dialysis.
--- NOTE | 2024-08-22 10:00 | P.PNNP_ITS ---
Progress Note: A&P Assessment and Plan (1) End stage renal disease: Code(s): N18.6 - End stage renal disease Status: Acute Assessment and Plan: * HD today * continue outptient schedule of Sunday/Sunday/Sunday * follow electrolytes, volume status, and clearance (2) Generalized weakness: Code(s): R53.1 - Weakness Status: Acute Assessment and Plan: * possibly due to mild uremia (?) * missed ~ 1 week of dialysis prior to admission * no evidence of infection: * CXR not indicative of pneumonia * viral swabs for influenza/RSV/COVID negatibe * WBC normal * further antibiotics on hold * continue supportive care (3) Abdominal pain: Code(s): R10.9 - Unspecified abdominal pain Status: Acute Assessment and Plan: * reports this in association with nausea/vomiting/diarrhea * however, N/V is better but still with intermittent diarrhea (none noted since admission) * KUB noted * related to missed dialysis (?) * continue supportive therapy (4) Chronic pain syndrome: Code(s): G89.4 - Chronic pain syndrome Status: Acute Assessment and Plan: * contributing to #2 (?) * does take chronic narcotics * follow for now (5) Anemia: Code(s): D64.9 - Anemia, unspecified Status: Chronic Assessment and Plan: * due to ESRD * H/H supratherapeutic at this time * hold Retacrit with dialysis * follow trend of H/H (6) Diabetes mellitus: Code(s): E11.9 - Type 2 diabetes mellitus without complications Status: Chronic Assessment and Plan: * diet controlled following gastric bypass surgery * follow accu-cheks * glycemic control per hospitalist Will continue to follow. Subjective Date/time seen: 08/22/24 10:00 Interval history: Follow-up for end stage renal disease on hemodialysis. Tolerated dialysis treatment yesterday and tolerating dialysis treatment today at the time of my visit (seen on HD at 9:50AM); no apparent distress noted when seen; no other issues/events overnight or earlier this morning. Exam Narrative: General: WD/WN female in NAD Heart: normal S1 and S2; no rub Lungs: clear to auscultation Abdomen: soft, nontender, nondistended, positive bowel sounds Extremities: no cyanosis or clubbing; no edema; s/p bilateral BKA Skin: warm and dry Objective Data Vital Signs Vital Signs: Vital Signs Temp Pulse Resp BP Pulse Ox O2 Del Method 08/22/24 10:00 66 95/61 L 08/22/24 09:45 73 100/54 L 08/22/24 09:30 68 120/70 08/22/24 09:15 74 121/55 L 08/22/24 08:52 98.1 F 69 18 122/67 100 08/22/24 09:05 72 112/63 08/22/24 07:40 98.1 F 62 14 119/66 97 08/22/24 00:00 98.2 F 63 20 116/60 95 08/21/24 20:00 80 08/21/24 20:00 98 Room Air 08/21/24 18:00 80 08/21/24 16:00 67 08/21/24 16:00 Room Air 08/21/24 18:26 98.5 F 73 18 106/58 L 98 08/21/24 16:00 97.9 F 70 16 99/71 L 98 08/21/24 14:00 82 08/21/24 12:00 91 08/21/24 12:00 Room Air 08/21/24 12:06 88 132/80 08/21/24 12:18 97.8 F 84 16 131/65 98 08/21/24 12:00 89 162/79 H 08/21/24 11:45 99 188/89 H 08/21/24 11:30 90 155/94 H Intake/Output Intake/Output: Intake & Output 08/19/24 08/20/24 08/21/24 08/22/24 23:59 23:59 23:59 23:59 Intake Total 480 540 Output Total 2000 Balance -1520 540 Meds/Results Medications: Active Medications Generic Name Dose Route Start Last Admin Trade Name Freq PRN Reason Stop Dose Admin Acetaminophen 1,000 mg 08/21/24 09:00 08/22/24 08:10 Acetaminophen 500 Mg Tablet PO 09/20/24 08:59 1,000 mg DAILY MARLINE Administration Albuterol 2.5 mg 08/21/24 05:53 Albuterol Sulfate Neb 2.5 Mg/3 Ml Inh INHALATION Q6HRT PRN sob Aripiprazole 5 mg 08/21/24 09:00 08/22/24 08:10 Aripiprazole 5 Mg Tablet PO 5 mg QAM MARLINE Administration Atorvastatin Calcium 40 mg 08/21/24 09:00 08/22/24 08:10 Atorvastatin 40 Mg Tablet PO 40 mg DAILY MARLINE Administration Calcium Carbonate 200 mg 08/21/24 05:18 Calcium Carbonate (Tums) 500 Mg (200 Mg Elemental) BY MOUTH Q8H PRN Indigestion Carbidopa/Levodopa 1 tablet 08/21/24 09:00 08/22/24 08:10 Carbidopa/Levodopa 25/100 Mg Tablet PO 1 tablet BID MARLINE Administration Cinacalcet 30 mg 08/22/24 09:00 08/22/24 08:12 Cinacalcet 30 Mg Tablet PO 30 mg MoWeFr MARLINE Administration Clopidogrel Bisulfate 75 mg 08/21/24 09:00 08/22/24 08:10 Clopidogrel Bisulfate 75 Mg Tablet PO 75 mg QAM MARLINE Administration Dextrose 12.5 gm 08/21/24 18:13 Dextrose 50% 25 Gm/50 Ml Syringe IV PUSH PRN PRN Hypoglycemia Protocol Docusate Sodium 50 mg 08/21/24 09:00 08/22/24 08:11 Docusate Sodium Liq 100 Mg/10 Ml Udc PO 50 mg BID MARLINE Administration Glucagon 1 mg 08/21/24 18:13 Glucagon For Inj 1 Mg Vial IM PRN PRN Hypoglycemia Protocol Glucose 15 gm 08/21/24 18:13 Glucose Oral Gel 15 Gm Of Glucse In 37.5 Gm Tube PO PRN PRN Hypoglycemia Protocol Heparin Sodium (Porcine) 5,000 units 08/21/24 09:00 08/22/24 08:11 Heparin Sodium 5,000 Units/Ml Vial SUB-Q 5,000 units Q12HR MARLINE Administration Dextrose 1,000 mls @ 100 mls/hr 08/21/24 18:13 Dextrose 5% 1,000 Ml IVPB PRN PRN Hypoglycemia Protocol Albumin Human 50 mls @ 999 mls/hr 08/22/24 06:42 Albutein IVPB 09/22/24 06:41 Q10M PRN HYPOTENSION Insulin Aspart 3 - 6 units 08/22/24 08:00 08/22/24 08:07 Insulin Aspart (*Bkc) 100 Units/Ml SUB-Q Not Given TIDWM MARLINE Protocol Loratadine 10 mg 08/22/24 09:00 08/22/24 08:10 Loratadine 10 Mg Tablet PO 10 mg Q48H MARLINE Administration Magnesium Hydroxide 30 ml 08/21/24 05:23 Magnesium Hydroxide Susp 30 Ml Udc PO DAILY PRN Constipation Melatonin 5 mg 08/21/24 21:00 08/21/24 21:33 Melatonin 5 Mg Tablet PO 09/20/24 20:59 5 mg HS MARLINE Administration Midodrine 10 mg 08/21/24 05:21 Midodrine Hcl 10 Mg Tablet PO Q6H PRN Hypotension Mirtazapine 30 mg 08/21/24 21:00 08/21/24 21:32 Mirtazapine 15 Mg Tablet PO 30 mg HS MARLINE Administration Morphine Sulfate 15 mg 08/21/24 04:29 08/21/24 13:57 Morphine Sulfate (*Crx) 15 Mg Tab Ir PO 15 mg Q4H PRN Administration Pain Rated 7-10 Ondansetron HCl 4 mg 08/21/24 05:04 Ondansetron Inj 4 Mg/2 Ml Vial IV PUSH Q6H PRN Nausea And Vomiting Ondansetron HCl 4 mg 08/21/24 07:56 Ondansetron Hcl Odt 4 Mg Tablet PO Q4H PRN Nausea Pantoprazole Sodium 40 mg 08/21/24 09:00 08/22/24 08:10 Pantoprazole 40 Mg Tablet PO 40 mg QAM MARLINE Administration Polyethylene Glycol 17 gm 08/21/24 08:00 Polyethylene Glycol 3350 17 Gm Powd.Pack PO DAILY PRN Constipation Pregabalin 25 mg 08/21/24 21:00 08/21/24 21:33 Pregabalin (*Crx) 25 Mg Capsule PO 25 mg HS MARLINE Administration Ropinirole HCl 0.75 mg 08/21/24 21:00 08/21/24 21:32 Ropinirole Hcl 0.25 Mg Tablet PO 0.75 mg HS MARLINE Administration Saccharomyces Boulardii 250 mg 08/21/24 09:00 08/22/24 08:11 Saccharomyces Boulardii 250 Mg Capsule PO 250 mg BID MARLINE Administration Senna 8.6 mg 08/21/24 08:04 Sennosides 8.6 Mg Tablet PO DAILY PRN Constipation Sertraline HCl 100 mg 08/21/24 09:00 08/22/24 08:10 Sertraline Hcl 50 Mg Tablet PO 100 mg QAM MARLINE Administration Sevelamer Carbonate 2,400 mg 08/21/24 12:00 08/22/24 08:10 Sevelamer Carbonate 800 Mg Tablet PO 2,400 mg TIDWM MARLINE Administration Vitamin B Complex/Folic Acid 1 cap 08/21/24 09:00 08/22/24 08:10 Vitamin B Cmplx/Vit C/Folic Ac 1 Capsule PO 1 cap QAM MARLINE Administration Radiology Results: ITS Impressions Chest X-Ray 08/20/24 23:49 IMPRESSION: 1. Small lung volumes with airspace opacities in the perihilar regions and lower lung zones, consistent with atelectasis versus pneumonia. 2. Shrapnel overlying the neck and right supraclavicular region. Abdomen X-Ray 08/21/24 18:10 IMPRESSION: 1. Normal bowel gas pattern. Labs Labs: Laboratory Tests 08/22/24 04:17 08/22/24 04:17 Hemoglobin A1c 4.6 Calcium 10.0 Phosphorus 6.3 H C-Reactive Protein 0.7 Albumin 3.6 TSH (Reflex) 2.890
--- NOTE | 2024-08-22 13:11 | PC.NURSE ---
This RN transported pt from dialysis room to S room 313 and gave bedside report to Amanda MATTHEW.
--- NOTE | 2024-08-22 13:47 | PM.DS ---
DS: Admitting Diagnosis Discharge Date 08/22/24 Admitting Diagnosis Weakness DS: Discharge Diagnosis Discharge Diagnosis (1) End-stage renal disease on hemodialysis: Code(s): N18.6 - End stage renal disease; Z99.2 - Dependence on renal dialysis Status: Acute (2) Status post bilateral below knee amputation: Code(s): Z89.512 - Acquired absence of left leg below knee; Z89.511 - Acquired absence of right leg below knee Status: Acute (3) Chronic pain syndrome: Code(s): G89.4 - Chronic pain syndrome Status: Acute (4) Abdominal pain: Code(s): R10.9 - Unspecified abdominal pain Status: Acute (5) Diabetes mellitus: Code(s): E11.9 - Type 2 diabetes mellitus without complications Status: Chronic (6) Medical non-compliance: Code(s): Z91.199 - Patient's noncompliance with other medical treatment and regimen due to unspecified reason Status: Acute DS: Summary Hospital Course Reason for hospitalization: 43yo female with ESRD, PAD s/p bilateral BKA, peripheral neuropathy and chronic pain syndrome here for weakness. Please see H&P for details. Hospital Course: Patient presented emergency room because of weakness. She states that she was unable to do dialysis because of lack of transportation. She also was having difficulty getting out of her house but now she says a ramp is being built. Chest x-ray noted and suspect more likely atelectasis or even pulmonary edema from her lack of dialysis than pneumonia. White count was normal. Influenza and COVID negative. She tolerated dialysis for two days. Nephrology consulted and appreciate their input. She also states she has been out of all her medications for about a week. [facility] and was not given any medications. Antibiotics started no clear evidence of infection so abx held. Patient with abdominal pain diffusely. She was having diarrhea, nausea and vomiting. The nausea and vomiting improved and she was tolerating oral intake. No bowel movements documented here. KUB showing normal bowel gas pattern. test negative. Patient has diet-controlled diabetes. Since her gastric bypass, her diabetes has been much better controlled. A1c 4.6%. She was encouraged to be compliant with her dialysis treatments. She overall did well and was able to be discharged on 08/22/24. She has transportation arranged through the dialysis center. She says the ramp will be completed before Sunday. Status at Discharge Cognitive/behavioral status at discharge: stable Time Spent with Patient Time attestation: Total time spent providing and/or coordinating discharge services: 34 minutes Time spent: Greater than 30 minutes Exam Narrative: AF 98.1 116/68 63 18 100% ra Gen - NARD Chest - CTA bilaterally, nml RR CV - RRR S1/S2 Abd - Soft, diffusely tender without guarding. Ext - bilateral BKA. Thrill and bruit to Rt UE fistula Psych - Nml mood and affect Skin - Warm and dry. small area of thin but intact scar left stump w/o open areas DS: Data Data Completed and Pending Labs on day of discharge: Labs from last 24 hours 08/22/24 08/22/24 08/21/24 08:03 04:17 19:50 WBC 5.4 RBC 4.00 L Hgb 12.0 Hct 39.1 MCV 97.8 MCH 30.0 MCHC 30.7 L RDW 13.0 Plt Count 226 MPV 9.9 Immature Gran % (Auto) 0.2 Neut % (Auto) 49.8 Lymph % (Auto) 32.6 [place] % (Auto) 8.3 Eos % (Auto) 8.5 H Baso % (Auto) 0.6 Lymph # (Auto) 1.76 [place] # (Auto) 0.5 Eos # (Auto) 0.5 H Baso # (Auto) 0.0 Abs Immat Gran (auto) 0.01 Absolute Neuts (auto) 2.7 Absolute Nucleated RBC 0.000 Nucleated RBC % 0.0 Sodium 139 Potassium 4.6 Chloride 102 Carbon Dioxide 28 Anion Gap 9 BUN 35 H D Creatinine 6.80 H Estim Creat Clear Calc 13 Estimated GFR 8 L Glucose 73 POC Capillary Glucose 76 93 Hemoglobin A1c 4.6 Calcium 10.0 Phosphorus 6.3 H C-Reactive Protein 0.7 Albumin 3.6 TSH (Reflex) 2.890 Discharge Plan Discharge Attending physician on discharge: Xavier Valencia Consulting providers: Naomie Batista Discharging Clinician: Xavier Valencia Anticipated Discharge Date/Time: 08/22/24 13:56 Patient Disposition: Home, Self-Care Activity: as tolerated Diet: renal Discharge Instructions: Check blood pressure 1 to 2 times a day. Record and bring into your doctor for review. Call your doctor if your blood pressure is greater than 180/110. Take precautions to avoid falls. Contact your doctor or call 911 and come to the Emergency Room if you have fevers, lightheadedness or other worrisome symptoms. Avoid NSAIDs (ibuprofen, naproxen, Aleve). Tylenol is safe to take. Follow-up with your primary care provider in 1-2 weeks. Please call for appointment. Follow-up with Kidney doctor in 2-3 weeks. Please call for an appointment Continue dialysis [facility] schedule. Thank you for using [facility] for your health care needs. Patient Instructions: Antibiotic Form, Clopidogrel (By mouth), Pain Management (GEN) Stand Alone Forms: General Discharge Information Follow-up/Referrals: Naomie Batista MD [Physician] - Call for Appointment UNKNOWN,DOCTOR [Primary Care Provider] - Call for Appointment Discharge Medications: New albuterol sulfate 90 mcg/actuation HFA aerosol inhaler 2 puff inhalation QID PRN (Reason: shortness of breath or wheezing) Qty: 6.7 0RF acetaminophen 325 mg Tablet 650 mg PO Q6H PRN (Reason: Pain) Qty: 30 0RF Continued Abilify 5 mg tablet 5 mg PO DAILY Qty: 30 1RF atorvastatin 40 mg tablet 40 mg PO DAILY Qty: 30 1RF Renal Multivitamin Formula tablet 1 tablet PO DAILY Qty: 30 1RF ropinirole 0.25 mg tablet 0.75 mg PO HS Qty: 90 0RF sevelamer HCl 800 mg tablet 2,400 mg PO TID 30 Days Qty: 270 1RF Sinemet tablet 1 tablet PO BID Qty: 60 1RF Rx Instructions: 25-100 mg cinacalcet 30 mg tablet 30 mg PO 3XW Qty: 12 1RF Rx Instructions: Sunday, Sunday, Sunday clopidogrel 75 mg tablet 75 mg PO DAILY Qty: 30 1RF Colace Clear 50 mg capsule 50 mg PO BID Qty: 60 1RF midodrine 10 mg tablet 10 mg PO Q6H PRN (Reason: Hypotension) Qty: 10 0RF mirtazapine 30 mg tablet 30 mg PO HS Qty: 30 1RF sertraline 100 mg tablet 100 mg PO DAILY Qty: 30 1RF Discontinued acetaminophen 500 mg tablet 1,000 mg PO DAILY albuterol sulfate 0.083 percent 1 vial inhalation Q6H PRN (Reason: sob) Rx Instructions: 2.5mg/3ml Milk of Magnesia 30 ml liquid 30 ml PO DAILY PRN (Reason: Constipation) calcium carbonate 1 tablet tablet 1 tablet PO Q8H PRN (Reason: Indigestion) guaifenesin liquid 10 ml PO Q6H PRN (Reason: Cough) Rx Instructions: 100mg/5ml loperamide 2 mg capsule 2 mg PO Q4H PRN (Reason: Diarrhea) Rx Instructions: 8mg max per day loratadine 10 mg tablet 10 mg PO Q48H magnesium hydroxide 311 mg tablet 311 mg PO DAILY PRN (Reason: Constipation) melatonin 5 mg tablet 5 mg PO HS Protonix 40 mg tablet 40 mg PO DAILY Saccharomyces boulardii 250 mg capsule 250 mg PO BID morphine 15 mg tablet 15 mg PO Q4H naloxone 4 mg aerosol 4 mg intranasal Q2-3M nystatin 100,000 units powder 1 applic topical Q12H ondansetron 4 mg tablet 4 mg PO Q4H PRN (Reason: Nausea) polyethylene glycol 3350 17 g powder 17 g PO DAILY PRN (Reason: Constipation) pregabalin 25 mg capsule 25 mg PO HS sennosides 8.6 mg tablet 8.6 mg PO DAILY PRN (Reason: Constipation) Date of admission: 08/21/24 03:17 Primary Care Provider: UNKNOWN,DOCTOR Admitting Provider: Tadeo Stanford V. Attending physician on admission: Tadeo Stanford V. Condition: Stable Hospitalist MIPS Heart Failure (Exclusion) Patient has history of Heart Transplant or Left Ventricular Assistive Device?: No IF YES, STOP HERE Heart Failure (Qualifier) Patient has current or prior documentation of LVEF less than or equal to 40%, or mod/servere depressed LVSF?: No IF NO, STOP HERE
[2024-08-22] MEDS: ACETAMINOPHEN 325 MG TABLET 650 MG PO (14:30)
[2024-08-22] MEDS: SACCHAROMYCES BOULARDII 250 MG CAPSULE PO (17:11)
[2024-08-22] MEDS: PREGABALIN (*CRX) 25 MG CAPSULE PO (20:31)
[2024-08-22] MEDS: rOPINIRole HCL 0.25 MG TABLET 0.75 MG PO (20:31)
[2024-08-22] MEDS: MELATONIN 5 MG TABLET PO (20:34)
[2024-08-22] MEDS: MIRTAZAPINE 15 MG TABLET 30 MG PO (20:34)
[2024-08-22 21:19] LABS: Glucose Point of Care 102 mg/dl (65-105)
[2024-08-23] VITALS: BP 116/70; PULSE 70; RESP 18; TEMP 36.1; O2SAT 99
[2024-08-23 08:00] VITALS: BP 155/87; PULSE 68; RESP 18; TEMP 36.3; O2SAT 100
[2024-08-23 08:05] LABS: Glucose Point of Care 68 mg/dl (65-105)
[2024-08-23] MEDS: SEVELAMER CARBONATE 800 MG TABLET 2400 MG PO ×3 (08:22→16:24)
[2024-08-23] MEDS: ATORVASTATIN 40 MG TABLET PO (08:23)
[2024-08-23] MEDS: ARIPiprazole 5 MG TABLET PO (08:23)
[2024-08-23] MEDS: ACETAMINOPHEN 500 MG TABLET 1000 MG PO (08:23)
[2024-08-23] MEDS: CLOPIDOGREL BISULFATE 75 MG TABLET PO (08:23)
[2024-08-23] MEDS: SERTRALINE HCL 50 MG TABLET 100 MG PO (08:23)
[2024-08-23] MEDS: SACCHAROMYCES BOULARDII 250 MG CAPSULE PO ×2 (08:23→16:23)
[2024-08-23] MEDS: PANTOPRAZOLE 40 MG TABLET PO (08:24)
[2024-08-23] MEDS: CARBIDOPA/LEVODOPA 25/100 MG TABLET 1 TABLET PO ×2 (08:24→16:24)
[2024-08-23 09:02] LABS: Glucose Point of Care 109 mg/dl (65-105)
--- NOTE | 2024-08-23 09:50 | P.PNNP_ITS ---
Progress Note: A&P Assessment and Plan (1) End stage renal disease: Code(s): N18.6 - End stage renal disease Status: Acute Assessment and Plan: * HD yesterday * HD tomorrow due to dialysis schedule (Sunday/Sunday/Sunday) * resume outpatient schedule of Sunday/Sunday/Sunday later next week * follow electrolytes, volume status, and clearance (2) Generalized weakness: Code(s): R53.1 - Weakness Status: Acute Assessment and Plan: * possibly due to mild uremia (?) * missed ~ 1 week of dialysis prior to admission * no evidence of infection: * CXR not indicative of pneumonia * viral swabs for influenza/RSV/COVID negatibe * WBC normal * further antibiotics on hold * continue supportive care (3) Abdominal pain: Code(s): R10.9 - Unspecified abdominal pain Status: Acute Assessment and Plan: * reports this in association with nausea/vomiting/diarrhea * however, symptoms better * KUB noted * related to missed dialysis (?) * continue supportive therapy (4) Chronic pain syndrome: Code(s): G89.4 - Chronic pain syndrome Status: Acute Assessment and Plan: * contributing to #2 (?) * does take chronic narcotics * follow for now (5) Anemia: Code(s): D64.9 - Anemia, unspecified Status: Chronic Assessment and Plan: * due to ESRD * H/H supratherapeutic at this time * hold Retacrit with dialysis * follow trend of H/H (6) Diabetes mellitus: Code(s): E11.9 - Type 2 diabetes mellitus without complications Status: Chronic Assessment and Plan: * diet controlled following gastric bypass surgery * follow accu-cheks * glycemic control per hospitalist Will continue to follow. Subjective Date/time seen: 08/23/24 09:50 Interval history: Follow-up for end stage renal disease on hemodialysis. Tolerated dialysis treatment yesterday without any issues or problems; reports overall improvement since admission but not completely back to baseline; no apparent distress voiced at the time of my visit today; no events overnight or earlier this morning; discharged delayed given concerns patient does not have transportation to and from scheduled dialysis treatments arranged. Exam Narrative: General: WD/WN female in NAD Heart: normal S1 and S2; no rub Lungs: clear anteriorly Abdomen: soft, nontender, nondistended, positive bowel sounds Extremities: no cyanosis or clubbing; no edema; s/p bilateral BKA Skin: warm and intact Objective Data Vital Signs Vital Signs: Vital Signs Temp Pulse Resp BP Pulse Ox O2 Del Method 08/23/24 08:20 Room Air 08/23/24 00:00 97 F L 70 18 116/70 99 08/22/24 20:00 Room Air 08/22/24 16:00 97.5 F L 93 16 104/65 95 08/22/24 14:47 97.1 F L 68 16 108/66 100 08/22/24 13:51 98.1 F 70 18 113/65 96 Intake/Output Intake/Output: Intake & Output 08/20/24 08/21/24 08/22/24 08/23/24 23:59 23:59 23:59 23:59 Intake Total 480 790 680 Output Total 2000 987 Balance -1520 -197 680 Meds/Results Medications: Active Medications Generic Name Dose Route Start Last Admin Trade Name Freq PRN Reason Stop Dose Admin Acetaminophen 1,000 mg 08/21/24 09:00 08/23/24 08:23 Acetaminophen 500 Mg Tablet PO 09/20/24 08:59 1,000 mg DAILY MARLINE Administration Acetaminophen 650 mg 08/22/24 13:49 08/22/24 14:30 Acetaminophen 325 Mg Tablet PO 650 mg Q6H PRN Administration Pain Albuterol 2.5 mg 08/21/24 05:53 Albuterol Sulfate Neb 2.5 Mg/3 Ml Inh INHALATION Q6HRT PRN sob Aripiprazole 5 mg 08/21/24 09:00 08/23/24 08:23 Aripiprazole 5 Mg Tablet PO 5 mg QAM MARLINE Administration Atorvastatin Calcium 40 mg 08/21/24 09:00 08/23/24 08:23 Atorvastatin 40 Mg Tablet PO 40 mg DAILY MARLINE Administration Calcium Carbonate 200 mg 08/21/24 05:18 Calcium Carbonate (Tums) 500 Mg (200 Mg Elemental) BY MOUTH Q8H PRN Indigestion Carbidopa/Levodopa 1 tablet 08/21/24 09:00 08/23/24 08:24 Carbidopa/Levodopa 25/100 Mg Tablet PO 1 tablet BID MARLINE Administration Cinacalcet 30 mg 08/22/24 09:00 08/22/24 08:12 Cinacalcet 30 Mg Tablet PO 30 mg MoWeFr MARLINE Administration Clopidogrel Bisulfate 75 mg 08/21/24 09:00 08/23/24 08:23 Clopidogrel Bisulfate 75 Mg Tablet PO 75 mg QAM MARLINE Administration Dextrose 12.5 gm 08/21/24 18:13 Dextrose 50% 25 Gm/50 Ml Syringe IV PUSH PRN PRN Hypoglycemia Protocol Docusate Sodium 50 mg 08/21/24 09:00 08/23/24 08:22 Docusate Sodium Liq 100 Mg/10 Ml Udc PO 50 mg BID MARLINE Administration Glucagon 1 mg 08/21/24 18:13 Glucagon For Inj 1 Mg Vial IM PRN PRN Hypoglycemia Protocol Glucose 15 gm 08/21/24 18:13 Glucose Oral Gel 15 Gm Of Glucse In 37.5 Gm Tube PO PRN PRN Hypoglycemia Protocol Heparin Sodium (Porcine) 5,000 units 08/21/24 09:00 08/23/24 08:32 Heparin Sodium 5,000 Units/Ml Vial SUB-Q Not Given Q12HR MARLINE Dextrose 1,000 mls @ 100 mls/hr 08/21/24 18:13 Dextrose 5% 1,000 Ml IVPB PRN PRN Hypoglycemia Protocol Albumin Human 50 mls @ 999 mls/hr 08/22/24 06:42 Albutein IVPB 09/22/24 06:41 Q10M PRN HYPOTENSION Insulin Aspart 3 - 6 units 08/22/24 08:00 08/23/24 08:22 Insulin Aspart (*Bkc) 100 Units/Ml SUB-Q Not Given TIDWM MARLINE Protocol Loratadine 10 mg 08/22/24 09:00 08/22/24 08:10 Loratadine 10 Mg Tablet PO 10 mg Q48H MARLINE Administration Magnesium Hydroxide 30 ml 08/21/24 05:23 Magnesium Hydroxide Susp 30 Ml Udc PO DAILY PRN Constipation Melatonin 5 mg 08/21/24 21:00 08/22/24 20:34 Melatonin 5 Mg Tablet PO 09/20/24 20:59 5 mg HS MARLINE Administration Midodrine 10 mg 08/21/24 05:21 Midodrine Hcl 10 Mg Tablet PO Q6H PRN Hypotension Mirtazapine 30 mg 08/21/24 21:00 08/22/24 20:34 Mirtazapine 15 Mg Tablet PO 30 mg HS MARLINE Administration Ondansetron HCl 4 mg 08/21/24 05:04 Ondansetron Inj 4 Mg/2 Ml Vial IV PUSH Q6H PRN Nausea And Vomiting Ondansetron HCl 4 mg 08/21/24 07:56 Ondansetron Hcl Odt 4 Mg Tablet PO Q4H PRN Nausea Pantoprazole Sodium 40 mg 08/21/24 09:00 08/23/24 08:24 Pantoprazole 40 Mg Tablet PO 40 mg QAM MARLINE Administration Polyethylene Glycol 17 gm 08/21/24 08:00 Polyethylene Glycol 3350 17 Gm Powd.Pack PO DAILY PRN Constipation Pregabalin 25 mg 08/21/24 21:00 08/22/24 20:31 Pregabalin (*Crx) 25 Mg Capsule PO 25 mg HS MARLINE Administration Ropinirole HCl 0.75 mg 08/21/24 21:00 08/22/24 20:31 Ropinirole Hcl 0.25 Mg Tablet PO 0.75 mg HS MARLINE Administration Saccharomyces Boulardii 250 mg 08/21/24 09:00 08/23/24 08:23 Saccharomyces Boulardii 250 Mg Capsule PO 250 mg BID MARLINE Administration Senna 8.6 mg 08/21/24 08:04 Sennosides 8.6 Mg Tablet PO DAILY PRN Constipation Sertraline HCl 100 mg 08/21/24 09:00 08/23/24 08:23 Sertraline Hcl 50 Mg Tablet PO 100 mg QAM MARLINE Administration Sevelamer Carbonate 2,400 mg 08/21/24 12:00 08/23/24 08:22 Sevelamer Carbonate 800 Mg Tablet PO 2,400 mg TIDWM MARLINE Administration Vitamin B Complex/Folic Acid 1 cap 08/21/24 09:00 08/23/24 10:11 Vitamin B Cmplx/Vit C/Folic Ac 1 Capsule PO 1 cap QAM [facility] Administration Radiology Results: ITS Impressions Chest X-Ray 08/20/24 23:49 IMPRESSION: 1. Small lung volumes with airspace opacities in the perihilar regions and lower lung zones, consistent with atelectasis versus pneumonia. 2. Shrapnel overlying the neck and right supraclavicular region. Abdomen X-Ray 08/21/24 18:10 IMPRESSION: 1. Normal bowel gas pattern. Labs Labs: Laboratory Tests 08/23/24 11:46 08/23/24 11:46 Calcium 9.5 Total Bilirubin 0.7 AST 22 ALT 8 Alkaline Phosphatase 239 H Total Protein 8.0 Albumin 4.1
[2024-08-23] MEDS: VITAMIN B CMPLX/VIT C/FOLIC AC 1 CAPSULE 1 CAP PO (10:11)
[2024-08-23 11:32] LABS: Glucose Point of Care 84 mg/dl (65-105)
[2024-08-23 12:09] LABS: Hematocrit 43.9 % (37.0-47.0); Hemoglobin 13.3 g/dL (12.0-15.0); Mean Corpuscular HGB Conc 30.3 g/dl (32-36); Mean Corpuscular Hemoglobin 30.2 pg (26-34); Mean Corpuscular Volume 99.8 fl (80-100); Mean Platelet Volume 9.9 fl (7.4-10.4); Platelet Count Result 219 k/mm3 (150-375); Red Cell Distribution Width 12.8 % (11.5-14.5); White Blood Count 5.1 K/mm3 (4.5-10.0)
[2024-08-23 12:20] LABS: Alanine Aminotransferase 8 U/L (6-35); Albumin Level 4.1 g/dL (3.5-5.1); Alkaline Phosphatase 239 U/L (38-126); Anion Gap 9 mmol/L (4-12); Aspartate Amino Transferase 22 U/L (14-36); Bilirubin,Total 0.7 mg/dL (0.2-1.3); Blood Urea Nitrogen 23 mg/dL (7-17); Calcium 9.5 mg/dL (8.4-10.2); Carbon Dioxide 26 mmol/L (22-30); Chloride 104 mmol/L (98-107); Estimated CRCL calculation 16 ml/min; Estimated Glomerular Filt Rate 10; Glucose 81 mg/dL (65-110); Potassium 4.8 mmol/L (3.4-5.0); Sodium 139 mmol/L (137-145)
--- NOTE | 2024-08-23 13:06 | PC.NURSE ---
On 08/23/24, the LOZENGE MAKER, Ameena, provided care and completed [facility] documentation on this patient. I have reviewed the LOZENGE [employer]'s documentation and agree with the findings.
[2024-08-23 14:00] VITALS: BP 155/87; PULSE 84; RESP 20; TEMP 36.5; O2SAT 96
--- NOTE | 2024-08-23 15:43 | P.PNIM_ITS ---
Progress Note: A&P Assessment and Plan (1) End stage renal disease: Code(s): N18.6 - End stage renal disease Status: Acute Assessment and Plan: * HD tomorrow due to dialysis schedule (/Sunday/Sunday) * resume outpatient schedule of Sunday/Sunday/Sunday later next week * follow electrolytes, volume status, and clearance. (2) Generalized weakness: Code(s): R53.1 - Weakness Status: Acute Assessment and Plan: * possibly due to mild uremia (?) * missed ~ 1 week of dialysis prior to admission * no evidence of infection: * CXR not indicative of pneumonia * viral swabs for influenza/RSV/COVID negatibe * WBC normal * further antibiotics on hold * continue supportive care (3) Abdominal pain: Code(s): R10.9 - Unspecified abdominal pain Status: Acute Assessment and Plan: * reports this in association with nausea/vomiting/diarrhea * however, symptoms better * KUB noted * related to missed dialysis (?) * continue supportive therapy (4) Chronic pain syndrome: Code(s): G89.4 - Chronic pain syndrome Status: Acute Assessment and Plan: * contributing to #2 (?) * does take chronic narcotics * Started morphine 7.9 p.o. Q 4 hours p.r.n. for pain * follow for now (5) Anemia: Code(s): D64.9 - Anemia, unspecified Status: Chronic Assessment and Plan: * due to ESRD * H/H supratherapeutic at this time * hold Retacrit with dialysis * follow trend of H/H (6) Diabetes mellitus: Code(s): E11.9 - Type 2 diabetes mellitus without complications Status: Chronic Assessment and Plan: * diet controlled following gastric bypass surgery * follow accu-cheks * glycemic control per hospitalist Will continue to follow. Subjective Date/time seen: 08/23/24 15:43 Interval history: Patient is pending for placement. Complains of neuropathic pain. Order 1 dose of hydromorphone. Review of Systems Review of Systems: Bilateral stump pain, generalized weakness, has not been to dialysis in the last week or so Exam Narrative: AF 98.1 116/68 63 18 100% ra Gen - NARD Chest - CTA bilaterally, nml RR CV - RRR S1/S2 Abd - Soft, diffusely tender without guarding. Ext - bilateral BKA. Thrill and bruit to Rt UE fistula Psych - Nml mood and affect Skin - Warm and dry. small area of thin but intact scar left stump w/o open areas Const: General: comfortable, no acute distress, well developed, alert, awake, ill appearing chronically and edematous Nutritional Appearance: edematous Orientation/consciousness: patient oriented x3 HENMT: Head: normal to inspection, normocephalic and atraumatic Ears: hearing grossly normal bilaterally Face/Nose/Sinus: normal facial exam Face and sinus: normal facial exam Eyes: General: appearance normal, both eyes and all related structures Pupils: Equal, round and reactive pupils present EOM: EOMs intact bilaterally Neck: Neck: full ROM, no lymphadenopathy and no JVD Thyroid: thyroid normal Lymphatic: no lymphadenopathy noted Resp: Effort & Inspection: normal respiratory effort and able to speak in complete sentences Auscultation: clear to auscultation bilaterally Cardio: Jugular venous distension: no JVD Rate: regular rate Rhythm: regular rhythm Heart sounds: S1 normal heart sound present and S2 normal heart sound present : General: Yes deferred Skin: Rashes: no rashes Wounds: no wounds Neuro: General: patient oriented x3, CN's II-XI intact bilaterally and Unable to assess gait Cranial nerves: Yes CN's II-XII intact bilaterally and Yes Equal, round and reactive pupils present Cognition (Neuro): normal cognition Speech: normal speech Gait exam (Neuro): Unable to assess gait Motor exam (neuro): 5/5 motor strength present throughout Extrem: General: normal to inspection, full ROM, no joint enlargement and no pedal edema Other: Bilateral BKA Objective Data Vital Signs Vital Signs: Vital Signs - 24 hr 08/22/24 16:00 08/22/24 20:00 08/23/24 00:00 Temperature 97.5 F L 97 F L Pulse Rate 93 70 Respiratory Rate 16 18 Blood Pressure 104/65 116/70 Pulse Oximetry 95 99 Oxygen Delivery Room Air 08/23/24 08:20 08/23/24 08:00 08/23/24 14:00 Temperature 97.4 F L 97.7 F Pulse Rate 68 84 Respiratory Rate 18 20 Blood Pressure 155/87 H 155/87 H Pulse Oximetry 100 96 Oxygen Delivery Room Air Intake/Output Intake/Output: Intake & Output 08/20/24 08/21/24 08/22/24 08/23/24 23:59 23:59 23:59 23:59 Intake Total 480 790 920 Output Total 6931 987 Balance -1520 -197 920 Meds/Results Medications: Active Medications Generic Name Dose Route Start Last Admin Trade Name Freq PRN Reason Stop Dose Admin Acetaminophen 1,000 mg 08/21/24 09:00 08/23/24 08:23 Acetaminophen 500 Mg Tablet PO 09/20/24 08:59 1,000 mg DAILY MARLINE Administration Acetaminophen 650 mg 08/22/24 13:49 08/22/24 14:30 Acetaminophen 325 Mg Tablet PO 650 mg Q6H PRN Administration Pain Albuterol 2.5 mg 08/21/24 05:53 Albuterol Sulfate Neb 2.5 Mg/3 Ml Inh INHALATION Q6HRT PRN sob Aripiprazole 5 mg 08/21/24 09:00 08/23/24 08:23 Aripiprazole 5 Mg Tablet PO 5 mg QAM MARLINE Administration Atorvastatin Calcium 40 mg 08/21/24 09:00 08/23/24 08:23 Atorvastatin 40 Mg Tablet PO 40 mg DAILY MARLINE Administration Calcium Carbonate 200 mg 08/21/24 05:18 Calcium Carbonate (Tums) 500 Mg (200 Mg Elemental) BY MOUTH Q8H PRN Indigestion Carbidopa/Levodopa 1 tablet 08/21/24 09:00 08/23/24 08:24 Carbidopa/Levodopa 25/100 Mg Tablet PO 1 tablet BID MARLINE Administration Cinacalcet 30 mg 08/22/24 09:00 08/22/24 08:12 Cinacalcet 30 Mg Tablet PO 30 mg MoWeFr MARLINE Administration Clopidogrel Bisulfate 75 mg 08/21/24 09:00 08/23/24 08:23 Clopidogrel Bisulfate 75 Mg Tablet PO 75 mg QAM MARLINE Administration Dextrose 12.5 gm 08/21/24 18:13 Dextrose 50% 25 Gm/50 Ml Syringe IV PUSH PRN PRN Hypoglycemia Protocol Docusate Sodium 50 mg 08/21/24 09:00 08/23/24 08:22 Docusate Sodium Liq 100 Mg/10 Ml Udc PO 50 mg BID MARLINE Administration Glucagon 1 mg 08/21/24 18:13 Glucagon For Inj 1 Mg Vial IM PRN PRN Hypoglycemia Protocol Glucose 15 gm 08/21/24 18:13 Glucose Oral Gel 15 Gm Of Glucse In 37.5 Gm Tube PO PRN PRN Hypoglycemia Protocol Heparin Sodium (Porcine) 5,000 units 08/21/24 09:00 08/23/24 08:32 Heparin Sodium 5,000 Units/Ml Vial SUB-Q Not Given Q12HR MARLINE Dextrose 1,000 mls @ 100 mls/hr 08/21/24 18:13 Dextrose 5% 1,000 Ml IVPB PRN PRN Hypoglycemia Protocol Albumin Human 50 mls @ 999 mls/hr 08/22/24 06:42 Albutein IVPB 09/22/24 06:41 Q10M PRN HYPOTENSION Insulin Aspart 3 - 6 units 08/22/24 08:00 08/23/24 11:30 Insulin Aspart (*Bkc) 100 Units/Ml SUB-Q Not Given TIDWM MARLINE Protocol Loratadine 10 mg 08/22/24 09:00 08/22/24 08:10 Loratadine 10 Mg Tablet PO 10 mg Q48H MARLINE Administration Magnesium Hydroxide 30 ml 08/21/24 05:23 Magnesium Hydroxide Susp 30 Ml Udc PO DAILY PRN Constipation Melatonin 5 mg 08/21/24 21:00 08/22/24 20:34 Melatonin 5 Mg Tablet PO 09/20/24 20:59 5 mg HS MARLINE Administration Midodrine 10 mg 08/21/24 05:21 Midodrine Hcl 10 Mg Tablet PO Q6H PRN Hypotension Mirtazapine 30 mg 08/21/24 21:00 08/22/24 20:34 Mirtazapine 15 Mg Tablet PO 30 mg HS MARLINE Administration Ondansetron HCl 4 mg 08/21/24 05:04 Ondansetron Inj 4 Mg/2 Ml Vial IV PUSH Q6H PRN Nausea And Vomiting Ondansetron HCl 4 mg 08/21/24 07:56 Ondansetron Hcl Odt 4 Mg Tablet PO Q4H PRN Nausea Pantoprazole Sodium 40 mg 08/21/24 09:00 08/23/24 08:24 Pantoprazole 40 Mg Tablet PO 40 mg QAM MARLINE Administration Polyethylene Glycol 17 gm 08/21/24 08:00 Polyethylene Glycol 3350 17 Gm Powd.Pack PO DAILY PRN Constipation Pregabalin 25 mg 08/21/24 21:00 08/22/24 20:31 Pregabalin (*Crx) 25 Mg Capsule PO 25 mg HS MARLINE Administration Ropinirole HCl 0.75 mg 08/21/24 21:00 08/22/24 20:31 Ropinirole Hcl 0.25 Mg Tablet PO 0.75 mg HS MARLINE Administration Saccharomyces Boulardii 250 mg 08/21/24 09:00 08/23/24 08:23 Saccharomyces Boulardii 250 Mg Capsule PO 250 mg BID MARLINE Administration Senna 8.6 mg 08/21/24 08:04 Sennosides 8.6 Mg Tablet PO DAILY PRN Constipation Sertraline HCl 100 mg 08/21/24 09:00 08/23/24 08:23 Sertraline Hcl 50 Mg Tablet PO 100 mg QAM MARLINE Administration Sevelamer Carbonate 2,400 mg 08/21/24 12:00 08/23/24 12:58 Sevelamer Carbonate 800 Mg Tablet PO 2,400 mg TIDWM MARLINE Administration Vitamin B Complex/Folic Acid 1 cap 08/21/24 09:00 08/23/24 10:11 Vitamin B Cmplx/Vit C/Folic Ac 1 Capsule PO 1 cap QAM MARLINE Administration Radiology Results: ITS Impressions Chest X-Ray 08/20/24 23:49 IMPRESSION: 1. Small lung volumes with airspace opacities in the perihilar regions and lower lung zones, consistent with atelectasis versus pneumonia. 2. Shrapnel overlying the neck and right supraclavicular region. Abdomen X-Ray 08/21/24 18:10 IMPRESSION: 1. Normal bowel gas pattern. Labs Labs: Laboratory Results - last 24 hr 08/22/24 08/23/24 08/23/24 20:22 08:02 08:44 WBC RBC Hgb Hct MCV MCH MCHC RDW Plt Count MPV Sodium Potassium Chloride Carbon Dioxide Anion Gap BUN Creatinine Estim Creat Clear Calc Estimated GFR Glucose POC Capillary Glucose 102 68 109 H Calcium Total Bilirubin AST ALT Alkaline Phosphatase Total Protein Albumin 08/23/24 08/23/24 11:29 11:46 WBC 5.1 RBC 4.40 Hgb 13.3 Hct 43.9 MCV 99.8 MCH 30.2 MCHC 30.3 L RDW 12.8 Plt Count 219 MPV 9.9 Sodium 139 Potassium 4.8 Chloride 104 Carbon Dioxide 26 Anion Gap 9 BUN 23 H D Creatinine 5.60 H Estim Creat Clear Calc 16 Estimated GFR 10 L Glucose 81 POC Capillary Glucose 84 Calcium 9.5 Total Bilirubin 0.7 AST 22 ALT 8 Alkaline Phosphatase 239 H Total Protein 8.0 Albumin 4.1 Hospitalist MIPS Advance Care Plan I have confirmed that the patient's Advanced Care Plan is present, code status is documented, or surrogate decision maker is listed in patient medical record.: Yes Medication Reconciliation I have utilized all available resources to obtain, update and review the patients current medications (includes all prescriptions, OTC, herbals, cannabis, and nutritional supplements).: Yes
[2024-08-23] MEDS: MORPHINE SULFATE (*CRX) 15 MG TAB IR 7.5 MG PO (16:23)
[2024-08-23 16:27] LABS: Glucose Point of Care 74 mg/dl (65-105)
[2024-08-23 21:34] LABS: Glucose Point of Care 120 mg/dl (65-105)
[2024-08-23 21:35] VITALS: BP 159/90; PULSE 68; RESP 18; TEMP 36.7; O2SAT 100
[2024-08-23] MEDS: MELATONIN 5 MG TABLET PO (21:55)
[2024-08-23] MEDS: MIRTAZAPINE 15 MG TABLET 30 MG PO (21:55)
[2024-08-23] MEDS: rOPINIRole HCL 0.25 MG TABLET 0.75 MG PO (21:55)
[2024-08-23] MEDS: PREGABALIN (*CRX) 25 MG CAPSULE PO (21:55)
[2024-08-24] VITALS (20 sets, daily range): BP systolic 81–144; BP diastolic 30–87; PULSE 58–80; RESP 14–18; TEMP 36–37.2; O2SAT 97–99
[2024-08-24 03:04] LABS: Glucose Point of Care 86 mg/dl (65-105)
[2024-08-24] MEDS: MORPHINE SULFATE (*CRX) 15 MG TAB IR 7.5 MG PO ×2 (05:23→20:22)
[2024-08-24 06:09] LABS: Glucose Point of Care 70 mg/dl (65-105)
[2024-08-24 06:57] LABS: Glucose Point of Care 118 mg/dl (65-105)
[2024-08-24 06:59] LABS: Hematocrit 38.7 % (37.0-47.0); Hemoglobin 11.8 g/dL (12.0-15.0); Mean Corpuscular HGB Conc 30.5 g/dl (32-36); Mean Corpuscular Hemoglobin 29.9 pg (26-34); Mean Platelet Volume 9.9 fl (7.4-10.4); Platelet Count Result 215 k/mm3 (150-375); Red Blood Count 3.95 M/mm3 (4.2-5.4); Red Cell Distribution Width 12.7 % (11.5-14.5); White Blood Count 6.8 K/mm3 (4.5-10.0)
[2024-08-24 07:12] LABS: Alanine Aminotransferase 9 U/L (6-35); Albumin Level 3.4 g/dL (3.5-5.1); Alkaline Phosphatase 198 U/L (38-126); Anion Gap 9 mmol/L (4-12); Aspartate Amino Transferase 21 U/L (14-36); Bilirubin,Total 0.6 mg/dL (0.2-1.3); Blood Urea Nitrogen 32 mg/dL (7-17); Calcium 9.2 mg/dL (8.4-10.2); Carbon Dioxide 26 mmol/L (22-30); Chloride 104 mmol/L (98-107); Estimated CRCL calculation 13 ml/min; Estimated Glomerular Filt Rate 8; Glucose 125 mg/dL (65-110); Potassium 4.7 mmol/L (3.4-5.0); Sodium 139 mmol/L (137-145)
[2024-08-24 07:44] LABS: Glucose Point of Care 87 mg/dl (65-105)
[2024-08-24] MEDS: SODIUM CHLORIDE 0.9% IV 1,000 ML 999 ML IV CONT (08:34)
[2024-08-24] MEDS: ALBUMIN HUMAN 25% 12.5 GM/50ML 50 ML IVPB ×2 (09:45→10:54)
--- NOTE | 2024-08-24 09:50 | P.PNNP_ITS ---
Progress Note: A&P Assessment and Plan (1) End stage renal disease: Code(s): N18.6 - End stage renal disease Status: Acute Assessment and Plan: * HD today due to dialysis schedule (Sunday/Sunday/Sunday) * resume outpatient schedule of Sunday/Sunday/Sunday later next week * follow electrolytes, volume status, and clearance * transportation to/from dialysis attempting to be finalized... (2) Generalized weakness: Code(s): R53.1 - Weakness Status: Acute Assessment and Plan: * possibly due to mild uremia (?) * missed ~ 1 week of dialysis prior to admission * no evidence of infection: * CXR not indicative of pneumonia * viral swabs for influenza/RSV/COVID negatibe * WBC normal * further antibiotics on hold * continue supportive care (3) Abdominal pain: Code(s): R10.9 - Unspecified abdominal pain Status: Resolved Assessment and Plan: * reports this in association with nausea/vomiting/diarrhea * however, symptoms better * KUB noted * related to missed dialysis (?) * continue supportive therapy (4) Chronic pain syndrome: Code(s): G89.4 - Chronic pain syndrome Status: Acute Assessment and Plan: * contributing to #2 (?) * does take chronic narcotics * follow for now (5) Anemia: Code(s): D64.9 - Anemia, unspecified Status: Chronic Assessment and Plan: * due to ESRD * H/H supratherapeutic at this time * hold Retacrit with dialysis * follow trend of H/H (6) Diabetes mellitus: Code(s): E11.9 - Type 2 diabetes mellitus without complications Status: Chronic Assessment and Plan: * diet controlled following gastric bypass surgery * follow accu-cheks * glycemic control per hospitalist Will continue to follow. Subjective Date/time seen: 08/24/24 09:50 Interval history: Follow-up for end stage renal disease on hemodialysis. Tolerating dialysis treatment at the time of my visit (seen on HD at 9:40AM); sleepy when seen with soft BPs presumably due to getting pain medications for her neuropathic pain; no other issues/events overnight or earlier this morning. Exam Narrative: General: WD/WN female in NAD Heart: normal S1 and S2; no rub Lungs: clear anteriorly Abdomen: soft, nontender, nondistended, positive bowel sounds Extremities: no cyanosis or clubbing; no edema; s/p bilateral BKA Skin: no rash Objective Data Vital Signs Vital Signs: Vital Signs Temp Pulse Resp BP Pulse Ox O2 Del Method O2 Flow Rate 08/24/24 09:30 68 94/44 L 08/24/24 09:15 70 106/65 08/24/24 09:00 66 121/83 08/24/24 08:45 60 108/75 08/24/24 08:34 97.5 F L 62 17 126/73 08/24/24 08:34 0 08/24/24 06:00 98.0 F 68 16 144/85 H 97 08/23/24 20:00 Room Air 08/23/24 21:35 98.0 F 68 18 159/90 H 100 08/23/24 14:00 97.7 F 84 20 155/87 H 96 Intake/Output Intake/Output: Intake & Output 08/21/24 08/22/24 08/23/24 08/24/24 23:59 23:59 23:59 23:59 Intake Total 078 743 0777 860 Output Total 2000 987 0 Balance -1520 -197 1160 860 Meds/Results Medications: Active Medications Generic Name Dose Route Start Last Admin Trade Name Delmis PRN Reason Stop Dose Admin Acetaminophen 1,000 mg 08/21/24 09:00 08/23/24 08:23 Acetaminophen 500 Mg Tablet PO 09/20/24 08:59 1,000 mg DAILY MARLINE Administration Acetaminophen 650 mg 08/22/24 13:49 08/22/24 14:30 Acetaminophen 325 Mg Tablet PO 650 mg Q6H PRN Administration Pain Albuterol 2.5 mg 08/21/24 05:53 Albuterol Sulfate Neb 2.5 Mg/3 Ml Inh INHALATION Q6HRT PRN sob Aripiprazole 5 mg 08/21/24 09:00 08/23/24 08:23 Aripiprazole 5 Mg Tablet PO 5 mg QAM MARLINE Administration Atorvastatin Calcium 40 mg 08/21/24 09:00 08/23/24 08:23 Atorvastatin 40 Mg Tablet PO 40 mg DAILY MARLINE Administration Calcium Carbonate 200 mg 08/21/24 05:18 Calcium Carbonate (Tums) 500 Mg (200 Mg Elemental) BY MOUTH Q8H PRN Indigestion Carbidopa/Levodopa 1 tablet 08/21/24 09:00 08/23/24 16:24 Carbidopa/Levodopa 25/100 Mg Tablet PO 1 tablet BID MARLINE Administration Cinacalcet 30 mg 08/22/24 09:00 08/22/24 08:12 Cinacalcet 30 Mg Tablet PO 30 mg MoWeFr MARLINE Administration Clopidogrel Bisulfate 75 mg 08/21/24 09:00 08/23/24 08:23 Clopidogrel Bisulfate 75 Mg Tablet PO 75 mg QAM MARLINE Administration Dextrose 12.5 gm 08/21/24 18:13 Dextrose 50% 25 Gm/50 Ml Syringe IV PUSH PRN PRN Hypoglycemia Protocol Docusate Sodium 50 mg 08/21/24 09:00 08/23/24 16:28 Docusate Sodium Liq 100 Mg/10 Ml Udc PO Not Given BID MARLINE Epoetin Bryce-epbx 4,000 units 08/24/24 19:31 08/24/24 10:55 Epoetin Bryce-Epbx 4,000 Units/Ml Vial IV PUSH 08/24/24 19:32 4,000 units ONCE ONE Administration Glucagon 1 mg 08/21/24 18:13 Glucagon For Inj 1 Mg Vial IM PRN PRN Hypoglycemia Protocol Glucose 15 gm 08/21/24 18:13 Glucose Oral Gel 15 Gm Of Glucse In 37.5 Gm Tube PO PRN PRN Hypoglycemia Protocol Heparin Sodium (Porcine) 5,000 units 08/21/24 09:00 08/23/24 21:55 Heparin Sodium 5,000 Units/Ml Vial SUB-Q Not Given Q12HR MARLINE Dextrose 1,000 mls @ 100 mls/hr 08/21/24 18:13 Dextrose 5% 1,000 Ml IVPB PRN PRN Hypoglycemia Protocol Albumin Human 50 mls @ 999 mls/hr 08/22/24 06:42 08/24/24 10:54 Albutein IVPB 09/22/24 06:41 999 mls/hr Q10M PRN Administration HYPOTENSION Insulin Aspart 3 - 6 units 08/22/24 08:00 08/24/24 07:50 Insulin Aspart (*Bkc) 100 Units/Ml SUB-Q Not Given TIDWM MARLINE Protocol Loratadine 10 mg 08/22/24 09:00 08/22/24 08:10 Loratadine 10 Mg Tablet PO 10 mg Q48H MARLINE Administration Magnesium Hydroxide 30 ml 08/21/24 05:23 Magnesium Hydroxide Susp 30 Ml Udc PO DAILY PRN Constipation Melatonin 5 mg 08/21/24 21:00 08/23/24 21:55 Melatonin 5 Mg Tablet PO 09/20/24 20:59 5 mg HS MARLINE Administration Midodrine 10 mg 08/21/24 05:21 Midodrine Hcl 10 Mg Tablet PO Q6H PRN Hypotension Mirtazapine 30 mg 08/21/24 21:00 08/23/24 21:55 Mirtazapine 15 Mg Tablet PO 30 mg HS MARLINE Administration Morphine Sulfate 7.5 mg 08/23/24 15:57 08/24/24 05:23 Morphine Sulfate (*Crx) 15 Mg Tab Ir PO 7.5 mg Q4H PRN Administration Pain Rated 4-10 Ondansetron HCl 4 mg 08/21/24 05:04 Ondansetron Inj 4 Mg/2 Ml Vial IV PUSH Q6H PRN Nausea And Vomiting Ondansetron HCl 4 mg 08/21/24 07:56 Ondansetron Hcl Odt 4 Mg Tablet PO Q4H PRN Nausea Pantoprazole Sodium 40 mg 08/21/24 09:00 08/23/24 08:24 Pantoprazole 40 Mg Tablet PO 40 mg QAM MARLINE Administration Polyethylene Glycol 17 gm 08/21/24 08:00 Polyethylene Glycol 3350 17 Gm Powd.Pack PO DAILY PRN Constipation Pregabalin 25 mg 08/21/24 21:00 08/23/24 21:55 Pregabalin (*Crx) 25 Mg Capsule PO 25 mg HS MARLINE Administration Ropinirole HCl 0.75 mg 08/21/24 21:00 08/23/24 21:55 Ropinirole Hcl 0.25 Mg Tablet PO 0.75 mg HS MARLINE Administration Saccharomyces Boulardii 250 mg 08/21/24 09:00 08/23/24 16:23 Saccharomyces Boulardii 250 Mg Capsule PO 250 mg BID MARLINE Administration Senna 8.6 mg 08/21/24 08:04 Sennosides 8.6 Mg Tablet PO DAILY PRN Constipation Sertraline HCl 100 mg 08/21/24 09:00 08/23/24 08:23 Sertraline Hcl 50 Mg Tablet PO 100 mg QAM MARLINE Administration Sevelamer Carbonate 2,400 mg 08/21/24 12:00 08/23/24 16:24 Sevelamer Carbonate 800 Mg Tablet PO 2,400 mg TIDWM MARLINE Administration Vitamin B Complex/Folic Acid 1 cap 08/21/24 09:00 08/23/24 10:11 Vitamin B Cmplx/Vit C/Folic Ac 1 Capsule PO 1 cap QAM MARLINE Administration Radiology Results: ITS Impressions Chest X-Ray 08/20/24 23:49 IMPRESSION: 1. Small lung volumes with airspace opacities in the perihilar regions and lower lung zones, consistent with atelectasis versus pneumonia. 2. Shrapnel overlying the neck and right supraclavicular region. Abdomen X-Ray 08/21/24 18:10 IMPRESSION: 1. Normal bowel gas pattern. Labs Labs: Laboratory Tests 08/24/24 06:47 08/24/24 06:47 Calcium 9.2 Total Bilirubin 0.6 AST 21 ALT 9 Alkaline Phosphatase 198 H Total Protein 7.0 Albumin 3.4 L
[2024-08-24] MEDS: EPOETIN ALFA-EPBX 4,000 UNITS/ML VIAL 4000 UNITS IV PUSH (10:55)
[2024-08-24 11:27] LABS: Glucose Point of Care 95 mg/dl (65-105)
[2024-08-24] MEDS: PANTOPRAZOLE 40 MG TABLET PO (13:27)
[2024-08-24] MEDS: ATORVASTATIN 40 MG TABLET PO (13:27)
[2024-08-24] MEDS: SEVELAMER CARBONATE 800 MG TABLET 2400 MG PO ×2 (13:27→17:39)
[2024-08-24] MEDS: SERTRALINE HCL 50 MG TABLET 100 MG PO (13:28)
[2024-08-24] MEDS: CARBIDOPA/LEVODOPA 25/100 MG TABLET 1 TABLET PO ×2 (13:28→17:40)
[2024-08-24] MEDS: CLOPIDOGREL BISULFATE 75 MG TABLET PO (13:28)
[2024-08-24] MEDS: ARIPiprazole 5 MG TABLET PO (13:28)
[2024-08-24] MEDS: SACCHAROMYCES BOULARDII 250 MG CAPSULE PO ×2 (13:28→17:40)
[2024-08-24] MEDS: VITAMIN B CMPLX/VIT C/FOLIC AC 1 CAPSULE 1 CAP PO (13:28)
[2024-08-24] MEDS: ACETAMINOPHEN 500 MG TABLET 1000 MG PO (13:28)
[2024-08-24] MEDS: LORATADINE 10 MG TABLET PO (13:29)
--- NOTE | 2024-08-24 13:45 | P.PNIM_ITS ---
Progress Note: A&P Assessment and Plan (1) End stage renal disease: Code(s): N18.6 - End stage renal disease Status: Acute Assessment and Plan: * HD today due to dialysis schedule (Sunday/Sunday/Sunday) * resume outpatient schedule of Sunday/Sunday/Sunday later next week * follow electrolytes, volume status, and clearance. * Nephrology following * Creatinine 10.70>6.80>5.60>6.70 (2) Generalized weakness: Code(s): R53.1 - Weakness Status: Acute Assessment and Plan: * possibly due to mild uremia (?) * missed ~ 1 week of dialysis prior to admission * no evidence of infection: * CXR not indicative of pneumonia * viral swabs for influenza/RSV/COVID negative * WBC normal * further antibiotics on hold * continue supportive care (3) Chronic pain syndrome: Code(s): G89.4 - Chronic pain syndrome Status: Acute Assessment and Plan: * does take chronic narcotics * Started morphine 7.5 mg p.o. Q 4 hours p.r.n. for pain * Docusate sodium 100 mg PO BID, Miralax 17 gm PO daily PRN, and Senna 8.6 mg PO daily PRN. * follow for now (4) Anemia: Code(s): D64.9 - Anemia, unspecified Status: Chronic Assessment and Plan: * due to ESRD * H/H supratherapeutic at this time * hold Retacrit with dialysis * follow trend of H/H (5) Diabetes mellitus: Code(s): E11.9 - Type 2 diabetes mellitus without complications Status: Chronic Assessment and Plan: * diet controlled following gastric bypass surgery * follow accu-cheks * glycemic control per hospitalist Will continue to follow. Subjective Date/time seen: 08/24/24 13:45 Interval history: Patient sitting up in bed and had just returned from dialysis. Patient reports tolerating dialysis well. Patient reports a headache that is a 9 , constant, and aching. Patient reports feeling stressed with move, trying to get things lined out, and insurance. Patient reports that she lives with her niece, her best friend, and patient will be living together. Patient denies shortness of breath, dizziness, nausea, or vomiting. Review of Systems Review of Systems: All systems reviewed & are unremarkable except as noted in HPI and below Exam Const: General: no acute distress and uncomfortable Resp: Effort & Inspection: normal respiratory effort Auscultation: clear to auscultation bilaterally Cardio: Rate: regular rate Rhythm: regular rhythm GI: GI Palp: Yes Soft to palpation Auscultation: normal bowel sounds Skin: General skin exam: no rashes or lesions noted Other: Warm and dry. small area of thin but intact scar left stump w/o open areas Neuro: Speech: normal speech Extrem: Other: bilateral BKA. Thrill and bruit to Rt UE fistula Psych: Mental Status: mental status grossly normal Other: stressed affect Objective Data Vital Signs Vital Signs: Vital Signs - 24 hr 08/23/24 14:00 08/23/24 21:35 08/23/24 20:00 Temperature 97.7 F 98.0 F Pulse Rate 84 68 Respiratory Rate 20 18 Blood Pressure 155/87 H 159/90 H Pulse Oximetry 96 100 Oxygen Delivery Room Air Oxygen Flow Rate Fraction of Inspired Oxygen 08/24/24 06:00 08/24/24 08:34 08/24/24 08:34 Temperature 98.0 F 97.5 F L Pulse Rate 68 62 Respiratory Rate 16 17 Blood Pressure 144/85 H 126/73 Pulse Oximetry 97 Oxygen Delivery Oxygen Flow Rate 0 Fraction of Inspired Oxygen 0 08/24/24 08:45 08/24/24 09:00 08/24/24 09:15 Temperature Pulse Rate 60 66 70 Respiratory Rate Blood Pressure 108/75 121/83 106/65 Pulse Oximetry Oxygen Delivery Oxygen Flow Rate Fraction of Inspired Oxygen 08/24/24 09:30 08/24/24 09:45 08/24/24 10:00 Temperature Pulse Rate 68 67 67 Respiratory Rate Blood Pressure 94/44 L 86/50 L 96/53 L Pulse Oximetry Oxygen Delivery Oxygen Flow Rate Fraction of Inspired Oxygen 08/24/24 10:15 08/24/24 10:30 08/24/24 10:45 Temperature Pulse Rate 71 66 77 Respiratory Rate Blood Pressure 108/44 L 81/30 L 83/46 L Pulse Oximetry Oxygen Delivery Oxygen Flow Rate Fraction of Inspired Oxygen 08/24/24 11:00 08/24/24 11:15 08/24/24 11:30 Temperature Pulse Rate 62 62 61 Respiratory Rate Blood Pressure 103/49 L 113/63 116/71 Pulse Oximetry Oxygen Delivery Oxygen Flow Rate Fraction of Inspired Oxygen 08/24/24 12:36 08/24/24 11:45 08/24/24 12:00 Temperature 98.1 F Pulse Rate 69 58 L 59 L Respiratory Rate 14 Blood Pressure 140/69 111/61 112/61 Pulse Oximetry Oxygen Delivery Oxygen Flow Rate Fraction of Inspired Oxygen 08/24/24 12:19 Temperature Pulse Rate 63 Respiratory Rate Blood Pressure 114/78 Pulse Oximetry Oxygen Delivery Oxygen Flow Rate Fraction of Inspired Oxygen Intake/Output Intake/Output: Intake & Output 08/21/24 08/22/24 08/23/24 08/24/24 23:59 23:59 23:59 23:59 Intake Total 324 518 0945 860 Output Total 2000 987 1000 Balance -1520 -197 1160 -140 Meds/Results Medications: Active Medications Generic Name Dose Route Start Last Admin Trade Name Freq PRN Reason Stop Dose Admin Acetaminophen 1,000 mg 08/21/24 09:00 08/24/24 13:28 Acetaminophen 500 Mg Tablet PO 09/20/24 08:59 1,000 mg DAILY MARLINE Administration Acetaminophen 650 mg 08/22/24 13:49 08/22/24 14:30 Acetaminophen 325 Mg Tablet PO 650 mg Q6H PRN Administration Pain Albuterol 2.5 mg 08/21/24 05:53 Albuterol Sulfate Neb 2.5 Mg/3 Ml Inh INHALATION Q6HRT PRN sob Aripiprazole 5 mg 08/21/24 09:00 08/24/24 13:28 Aripiprazole 5 Mg Tablet PO 5 mg QAM MARLINE Administration Atorvastatin Calcium 40 mg 08/21/24 09:00 08/24/24 13:27 Atorvastatin 40 Mg Tablet PO 40 mg DAILY MARLINE Administration Calcium Carbonate 200 mg 08/21/24 05:18 Calcium Carbonate (Tums) 500 Mg (200 Mg Elemental) BY MOUTH Q8H PRN Indigestion Carbidopa/Levodopa 1 tablet 08/21/24 09:00 08/24/24 13:28 Carbidopa/Levodopa 25/100 Mg Tablet PO 1 tablet BID MARLINE Administration Cinacalcet 30 mg 08/22/24 09:00 08/22/24 08:12 Cinacalcet 30 Mg Tablet PO 30 mg MoWeFr MARLINE Administration Clopidogrel Bisulfate 75 mg 08/21/24 09:00 08/24/24 13:28 Clopidogrel Bisulfate 75 Mg Tablet PO 75 mg QAM MARLINE Administration Dextrose 12.5 gm 08/21/24 18:13 Dextrose 50% 25 Gm/50 Ml Syringe IV PUSH PRN PRN Hypoglycemia Protocol Docusate Sodium 50 mg 08/21/24 09:00 08/24/24 13:32 Docusate Sodium Liq 100 Mg/10 Ml Udc PO Not Given BID MARLINE Epoetin Bryce-epbx 4,000 units 08/24/24 19:31 08/24/24 10:55 Epoetin Bryce-Epbx 4,000 Units/Ml Vial IV PUSH 08/24/24 19:32 4,000 units ONCE ONE Administration Glucagon 1 mg 08/21/24 18:13 Glucagon For Inj 1 Mg Vial IM PRN PRN Hypoglycemia Protocol Glucose 15 gm 08/21/24 18:13 Glucose Oral Gel 15 Gm Of Glucse In 37.5 Gm Tube PO PRN PRN Hypoglycemia Protocol Heparin Sodium (Porcine) 5,000 units 08/21/24 09:00 08/24/24 13:31 Heparin Sodium 5,000 Units/Ml Vial SUB-Q Not Given Q12HR MARLINE Dextrose 1,000 mls @ 100 mls/hr 08/21/24 18:13 Dextrose 5% 1,000 Ml IVPB PRN PRN Hypoglycemia Protocol Albumin Human 50 mls @ 999 mls/hr 08/22/24 06:42 08/24/24 10:54 Albutein IVPB 09/22/24 06:41 999 mls/hr Q10M PRN Administration HYPOTENSION Insulin Aspart 3 - 6 units 08/22/24 08:00 08/24/24 13:18 Insulin Aspart (*Bkc) 100 Units/Ml SUB-Q Not Given TIDWM MARLINE Protocol Loratadine 10 mg 08/22/24 09:00 08/24/24 13:29 Loratadine 10 Mg Tablet PO 10 mg Q48H MARLINE Administration Magnesium Hydroxide 30 ml 08/21/24 05:23 Magnesium Hydroxide Susp 30 Ml Udc PO DAILY PRN Constipation Melatonin 5 mg 08/21/24 21:00 08/23/24 21:55 Melatonin 5 Mg Tablet PO 09/20/24 20:59 5 mg HS MARLINE Administration Midodrine 10 mg 08/21/24 05:21 Midodrine Hcl 10 Mg Tablet PO Q6H PRN Hypotension Mirtazapine 30 mg 08/21/24 21:00 08/23/24 21:55 Mirtazapine 15 Mg Tablet PO 30 mg HS MARLINE Administration Morphine Sulfate 7.5 mg 08/23/24 15:57 08/24/24 05:23 Morphine Sulfate (*Crx) 15 Mg Tab Ir PO 7.5 mg Q4H PRN Administration Pain Rated 4-10 Ondansetron HCl 4 mg 08/21/24 05:04 Ondansetron Inj 4 Mg/2 Ml Vial IV PUSH Q6H PRN Nausea And Vomiting Ondansetron HCl 4 mg 08/21/24 07:56 Ondansetron Hcl Odt 4 Mg Tablet PO Q4H PRN Nausea Pantoprazole Sodium 40 mg 08/21/24 09:00 08/24/24 13:27 Pantoprazole 40 Mg Tablet PO 40 mg QAM MARLINE Administration Polyethylene Glycol 17 gm 08/21/24 08:00 Polyethylene Glycol 3350 17 Gm Powd.Pack PO DAILY PRN Constipation Pregabalin 25 mg 08/21/24 21:00 08/23/24 21:55 Pregabalin (*Crx) 25 Mg Capsule PO 25 mg HS MARLINE Administration Ropinirole HCl 0.75 mg 08/21/24 21:00 08/23/24 21:55 Ropinirole Hcl 0.25 Mg Tablet PO 0.75 mg HS MARLINE Administration Saccharomyces Boulardii 250 mg 08/21/24 09:00 08/24/24 13:28 Saccharomyces Boulardii 250 Mg Capsule PO 250 mg BID MARLINE Administration Senna 8.6 mg 08/21/24 08:04 Sennosides 8.6 Mg Tablet PO DAILY PRN Constipation Sertraline HCl 100 mg 08/21/24 09:00 08/24/24 13:28 Sertraline Hcl 50 Mg Tablet PO 100 mg QAM MARLINE Administration Sevelamer Carbonate 2,400 mg 08/21/24 12:00 08/24/24 13:27 Sevelamer Carbonate 800 Mg Tablet PO 2,400 mg TIDWM MARLINE Administration Vitamin B Complex/Folic Acid 1 cap 08/21/24 09:00 08/24/24 13:28 Vitamin B Cmplx/Vit C/Folic Ac 1 Capsule PO 1 cap QAM [facility] Administration Radiology Results: ITS Impressions Chest X-Ray 08/20/24 23:49 IMPRESSION: 1. Small lung volumes with airspace opacities in the perihilar regions and lower lung zones, consistent with atelectasis versus pneumonia. 2. Shrapnel overlying the neck and right supraclavicular region. Abdomen X-Ray 08/21/24 18:10 IMPRESSION: 1. Normal bowel gas pattern. Labs Labs: Laboratory Results - last 24 hr 08/23/24 08/23/24 08/24/24 16:25 19:14 03:00 WBC RBC Hgb Hct MCV MCH MCHC RDW Plt Count MPV Sodium Potassium Chloride Carbon Dioxide Anion Gap BUN Creatinine Estim Creat Clear Calc Estimated GFR Glucose POC Capillary Glucose 74 120 H 86 Calcium Total Bilirubin AST ALT Alkaline Phosphatase Total Protein Albumin 08/24/24 08/24/24 08/24/24 05:17 06:47 06:54 WBC 6.8 RBC 3.95 L Hgb 11.8 L Hct 38.7 MCV 98.0 MCH 29.9 MCHC 30.5 L RDW 12.7 Plt Count 215 MPV 9.9 Sodium 139 Potassium 4.7 Chloride 104 Carbon Dioxide 26 Anion Gap 9 BUN 32 H Creatinine 6.70 H Estim Creat Clear Calc 13 Estimated GFR 8 L Glucose 125 H POC Capillary Glucose 70 118 H Calcium 9.2 Total Bilirubin 0.6 AST 21 ALT 9 Alkaline Phosphatase 198 H Total Protein 7.0 Albumin 3.4 L 08/24/24 08/24/24 07:40 11:24 WBC RBC Hgb Hct MCV MCH MCHC RDW Plt Count MPV Sodium Potassium Chloride Carbon Dioxide Anion Gap BUN Creatinine Estim Creat Clear Calc Estimated GFR Glucose POC Capillary Glucose 87 95 Calcium Total Bilirubin AST ALT Alkaline Phosphatase Total Protein Albumin
[2024-08-24 16:33] LABS: Glucose Point of Care 113 mg/dl (65-105)
[2024-08-24] MEDS: ONDANSETRON HCL ODT 4 MG TABLET PO (18:24)
[2024-08-24] MEDS: PREGABALIN (*CRX) 25 MG CAPSULE PO (20:22)
[2024-08-24] MEDS: rOPINIRole HCL 0.25 MG TABLET 0.75 MG PO (20:22)
[2024-08-24 20:23] LABS: Glucose Point of Care 142 mg/dl (65-105)
[2024-08-24] MEDS: MIRTAZAPINE 15 MG TABLET 30 MG PO (20:23)
[2024-08-24] MEDS: MELATONIN 5 MG TABLET PO (20:23)
[2024-08-25 06:00] VITALS: BP 136/89; PULSE 66; RESP 16; TEMP 36.7; O2SAT 96
[2024-08-25 07:38] LABS: Glucose Point of Care 82 mg/dl (65-105)
[2024-08-25] MEDS: VITAMIN B CMPLX/VIT C/FOLIC AC 1 CAPSULE 1 CAP PO (08:12)
[2024-08-25] MEDS: ARIPiprazole 5 MG TABLET PO (08:12)
[2024-08-25] MEDS: CARBIDOPA/LEVODOPA 25/100 MG TABLET 1 TABLET PO ×2 (08:12→16:32)
[2024-08-25] MEDS: SACCHAROMYCES BOULARDII 250 MG CAPSULE PO ×2 (08:12→16:32)
[2024-08-25] MEDS: SERTRALINE HCL 50 MG TABLET 100 MG PO (08:13)
[2024-08-25] MEDS: ACETAMINOPHEN 500 MG TABLET 1000 MG PO (08:13)
[2024-08-25] MEDS: CLOPIDOGREL BISULFATE 75 MG TABLET PO (08:13)
[2024-08-25] MEDS: PANTOPRAZOLE 40 MG TABLET PO (08:13)
[2024-08-25] MEDS: SEVELAMER CARBONATE 800 MG TABLET 2400 MG PO ×3 (08:13→16:31)
[2024-08-25] MEDS: ATORVASTATIN 40 MG TABLET PO (08:13)
[2024-08-25] MEDS: CINACALCET 30 MG TABLET PO (08:28)
[2024-08-25] MEDS: MORPHINE SULFATE (*CRX) 15 MG TAB IR 7.5 MG PO ×3 (08:31→20:46)
[2024-08-25 10:23] LABS: Basophils Percent Auto 0.4 % (0.2-1.2); Eosinophils Absolute Auto 0.5 K/mm3 (0-0.3); Eosinophils Percent Auto 6.6 % (0-4.4); Hematocrit 40.9 % (37.0-47.0); Hemoglobin 12.7 g/dL (12.0-15.0); Immature Granulocyte Absolute 0.02 K/mm3 (0.00-0.031); Immature Granulocyte Percent A 0.3 % (0-0.5); Lymphocytes Absolute Auto 1.55 K/mm3 (0.9-3.2); Lymphocytes Percent Auto 22.1 % (18.3-44.2); Mean Corpuscular HGB Conc 31.1 g/dl (32-36); Mean Corpuscular Hemoglobin 30.5 pg (26-34); Mean Corpuscular Volume 98.3 fl (80-100); Mean Platelet Volume 10.1 fl (7.4-10.4); Monocytes Absolute Auto 0.6 K/mm3 (0.1-0.6); Neutrophils Absolute Auto 4.4 K/mm3 (1.3-6.7); Neutrophils Percent Auto 62.6 % (45.5-73.1); Platelet Count Result 206 k/mm3 (150-375); Red Blood Count 4.16 M/mm3 (4.2-5.4); Red Cell Distribution Width 12.7 % (11.5-14.5)
[2024-08-25 10:39] LABS: Alanine Aminotransferase 8 U/L (6-35); Albumin Level 3.8 g/dL (3.5-5.1); Alkaline Phosphatase 210 U/L (38-126); Anion Gap 8 mmol/L (4-12); Aspartate Amino Transferase 31 U/L (14-36); Bilirubin,Total 0.6 mg/dL (0.2-1.3); Blood Urea Nitrogen 26 mg/dL (7-17); Calcium 9.7 mg/dL (8.4-10.2); Carbon Dioxide 30 mmol/L (22-30); Chloride 102 mmol/L (98-107); Estimated CRCL calculation 18 ml/min; Estimated Glomerular Filt Rate 12; Glucose 79 mg/dL (65-110); Potassium 4.4 mmol/L (3.4-5.0); Sodium 140 mmol/L (137-145)
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
[2024-08-25 11:30] LABS: Glucose Point of Care 64 mg/dl (65-105)
[2024-08-25] MEDS: ONDANSETRON INJ 4 MG/2 ML VIAL IV PUSH (11:52)
[2024-08-25 12:00] LABS: Glucose Point of Care 88 mg/dl (65-105)
--- NOTE | 2024-08-25 12:05 | P.PNNP_ITS ---
Progress Note: A&P Assessment and Plan (1) End stage renal disease: Code(s): N18.6 - End stage renal disease Status: Acute Assessment and Plan: * HD tomorrow due to dialysis schedule (Sunday /Sunday/Sunday) * resume outpatient schedule of Sunday/Sunday/Sunday later next week * follow electrolytes, volume status, and clearance * issues with transportation to/from dialysis center and lack of wheelchair ramp at home residence remain an issue.... (2) Generalized weakness: Code(s): R53.1 - Weakness Status: Acute Assessment and Plan: * possibly due to mild uremia (?) * missed ~ 1 week of dialysis prior to admission * no evidence of infection: * CXR not indicative of pneumonia * viral swabs for influenza/RSV/COVID negatibe * WBC normal * further antibiotics on hold * continue supportive care (3) Abdominal pain: Code(s): R10.9 - Unspecified abdominal pain Status: Resolved Assessment and Plan: * reports this in association with nausea/vomiting/diarrhea * however, symptoms better * KUB noted * related to missed dialysis (?) * continue supportive therapy (4) Chronic pain syndrome: Code(s): G89.4 - Chronic pain syndrome Status: Acute Assessment and Plan: * contributing to #2 (?) * does take chronic narcotics * follow for now (5) Anemia: Code(s): D64.9 - Anemia, unspecified Status: Chronic Assessment and Plan: * due to ESRD * H/H supratherapeutic at this time * hold Retacrit with dialysis * follow trend of H/H (6) Diabetes mellitus: Code(s): E11.9 - Type 2 diabetes mellitus without complications Status: Chronic Assessment and Plan: * diet controlled following gastric bypass surgery * follow accu-cheks * glycemic control per hospitalist Will continue to follow. Subjective Date/time seen: 08/25/24 12:05 Interval history: Follow-up for end stage renal disease on hemodialysis. Tolerated dialysis treatment yesterday without any issues or problems; discharge delayed to lack of transportation to/from dialysis as well as the fact no wheelchair ramp at her current residence; she is refusing care home placement at this time as well; some mild nausea earlier this morning; no apparent distress at the time of my visit. Exam Narrative: General: WD/WN female in NAD Heart: normal S1 and S2; no rub Lungs: clear anteriorly Abdomen: soft, nontender, nondistended, positive bowel sounds Extremities: no cyanosis or clubbing; no edema; s/p bilateral BKA Skin: no nodules Objective Data Vital Signs Vital Signs: Vital Signs Temp Pulse Resp BP Pulse Ox O2 Del Method 08/25/24 13:58 97.3 F L 77 16 127/79 99 08/25/24 08:00 Room Air 08/25/24 06:00 98.1 F 66 16 136/89 96 08/24/24 20:00 Room Air 08/24/24 21:05 99.0 F 80 14 98/64 L 97 Intake/Output Intake/Output: Intake & Output 08/22/24 08/23/24 08/24/24 08/25/24 23:59 23:59 23:59 23:59 Intake Total 790 1160 1809 1040 Output Total 987 1000 0 Balance -197 6583 416 1755 Meds/Results Medications: Active Medications Generic Name Dose Route Start Last Admin Trade Name Freq PRN Reason Stop Dose Admin Acetaminophen 1,000 mg 08/21/24 09:00 08/25/24 08:13 Acetaminophen 500 Mg Tablet PO 09/20/24 08:59 1,000 mg DAILY MARLINE Administration Acetaminophen 650 mg 08/22/24 13:49 08/22/24 14:30 Acetaminophen 325 Mg Tablet PO 650 mg Q6H PRN Administration Pain Albuterol 2.5 mg 08/21/24 05:53 Albuterol Sulfate Neb 2.5 Mg/3 Ml Inh INHALATION Q6HRT PRN sob Aripiprazole 5 mg 08/21/24 09:00 08/25/24 08:12 Aripiprazole 5 Mg Tablet PO 5 mg QAM MARLINE Administration Atorvastatin Calcium 40 mg 08/21/24 09:00 08/25/24 08:13 Atorvastatin 40 Mg Tablet PO 40 mg DAILY MARLINE Administration Calcium Carbonate 200 mg 08/21/24 05:18 Calcium Carbonate (Tums) 500 Mg (200 Mg Elemental) BY MOUTH Q8H PRN Indigestion Carbidopa/Levodopa 1 tablet 08/21/24 09:00 08/25/24 16:32 Carbidopa/Levodopa 25/100 Mg Tablet PO 1 tablet BID MARLINE Administration Cinacalcet 30 mg 08/22/24 09:00 08/25/24 08:28 Cinacalcet 30 Mg Tablet PO 30 mg MoWeFr MARLINE Administration Clopidogrel Bisulfate 75 mg 08/21/24 09:00 08/25/24 08:13 Clopidogrel Bisulfate 75 Mg Tablet PO 75 mg QAM MARLINE Administration Dextrose 12.5 gm 08/21/24 18:13 Dextrose 50% 25 Gm/50 Ml Syringe IV PUSH PRN PRN Hypoglycemia Protocol Docusate Sodium 50 mg 08/21/24 09:00 08/25/24 16:32 Docusate Sodium Liq 100 Mg/10 Ml Udc PO Not Given BID MARLINE Glucagon 1 mg 08/21/24 18:13 Glucagon For Inj 1 Mg Vial IM PRN PRN Hypoglycemia Protocol Glucose 15 gm 08/21/24 18:13 Glucose Oral Gel 15 Gm Of Glucse In 37.5 Gm Tube PO PRN PRN Hypoglycemia Protocol Heparin Sodium (Porcine) 5,000 units 08/21/24 09:00 08/25/24 08:28 Heparin Sodium 5,000 Units/Ml Vial SUB-Q Not Given Q12HR MARLINE Dextrose 1,000 mls @ 100 mls/hr 08/21/24 18:13 Dextrose 5% 1,000 Ml IVPB PRN PRN Hypoglycemia Protocol Albumin Human 50 mls @ 999 mls/hr 08/22/24 06:42 08/24/24 10:54 Albutein IVPB 09/22/24 06:41 999 mls/hr Q10M PRN Administration HYPOTENSION Insulin Aspart 3 - 6 units 08/22/24 08:00 08/25/24 17:35 Insulin Aspart (*Bkc) 100 Units/Ml SUB-Q Not Given TIDWM MARLINE Protocol Loratadine 10 mg 08/22/24 09:00 08/24/24 13:29 Loratadine 10 Mg Tablet PO 10 mg Q48H MARLINE Administration Magnesium Hydroxide 30 ml 08/21/24 05:23 Magnesium Hydroxide Susp 30 Ml Udc PO DAILY PRN Constipation Melatonin 5 mg 08/21/24 21:00 08/24/24 20:23 Melatonin 5 Mg Tablet PO 09/20/24 20:59 5 mg HS MARLINE Administration Midodrine 10 mg 08/21/24 05:21 Midodrine Hcl 10 Mg Tablet PO Q6H PRN Hypotension Mirtazapine 30 mg 08/21/24 21:00 08/24/24 20:23 Mirtazapine 15 Mg Tablet PO 30 mg HS MARLINE Administration Morphine Sulfate 7.5 mg 08/23/24 15:57 08/25/24 13:29 Morphine Sulfate (*Crx) 15 Mg Tab Ir PO 7.5 mg Q4H PRN Administration Pain Rated 4-10 Ondansetron HCl 4 mg 08/21/24 05:04 08/25/24 11:52 Ondansetron Inj 4 Mg/2 Ml Vial IV PUSH 4 mg Q6H PRN Administration Nausea And Vomiting Ondansetron HCl 4 mg 08/21/24 07:56 08/24/24 18:24 Ondansetron Hcl Odt 4 Mg Tablet PO 4 mg Q4H PRN Administration Nausea Pantoprazole Sodium 40 mg 08/21/24 09:00 08/25/24 08:13 Pantoprazole 40 Mg Tablet PO 40 mg QAM MARLINE Administration Polyethylene Glycol 17 gm 08/21/24 08:00 Polyethylene Glycol 3350 17 Gm Powd.Pack PO DAILY PRN Constipation Pregabalin 25 mg 08/21/24 21:00 08/24/24 20:22 Pregabalin (*Crx) 25 Mg Capsule PO 25 mg HS MARLINE Administration Ropinirole HCl 0.75 mg 08/21/24 21:00 08/24/24 20:22 Ropinirole Hcl 0.25 Mg Tablet PO 0.75 mg HS MARLINE Administration Saccharomyces Boulardii 250 mg 08/21/24 09:00 08/25/24 16:32 Saccharomyces Boulardii 250 Mg Capsule PO 250 mg BID MARLINE Administration Senna 8.6 mg 08/21/24 08:04 Sennosides 8.6 Mg Tablet PO DAILY PRN Constipation Sertraline HCl 100 mg 08/21/24 09:00 08/25/24 08:13 Sertraline Hcl 50 Mg Tablet PO 100 mg QAM MARLINE Administration Sevelamer Carbonate 2,400 mg 08/21/24 12:00 08/25/24 16:31 Sevelamer Carbonate 800 Mg Tablet PO 2,400 mg TIDWM MARLINE Administration Vitamin B Complex/Folic Acid 1 cap 08/21/24 09:00 08/25/24 08:12 Vitamin B Cmplx/Vit C/Folic Ac 1 Capsule PO 1 cap QAM [facility] Administration Radiology Results: ITS Impressions Chest X-Ray 08/20/24 23:49 IMPRESSION: 1. Small lung volumes with airspace opacities in the perihilar regions and lower lung zones, consistent with atelectasis versus pneumonia. 2. Shrapnel overlying the neck and right supraclavicular region. Abdomen X-Ray 08/21/24 18:10 IMPRESSION: 1. Normal bowel gas pattern. Labs Labs: Laboratory Tests 08/25/24 10:06 08/25/24 10:06 Calcium 9.7 Total Bilirubin 0.6 AST 31 ALT 8 Alkaline Phosphatase 210 H Total Protein 7.0 Albumin 3.8
[2024-08-25 13:58] VITALS: BP 127/79; PULSE 77; RESP 16; TEMP 36.3; O2SAT 99
[2024-08-25 16:41] LABS: Glucose Point of Care 73 mg/dl (65-105)
[2024-08-25 17:23] LABS: Glucose Point of Care 96 mg/dl (65-105)
[2024-08-25 20:39] VITALS: BP 94/61; PULSE 71; RESP 20; TEMP 37; O2SAT 100
[2024-08-25] MEDS: rOPINIRole HCL 0.25 MG TABLET 0.75 MG PO (20:46)
[2024-08-25] MEDS: PREGABALIN (*CRX) 25 MG CAPSULE PO (20:46)
[2024-08-25] MEDS: MELATONIN 5 MG TABLET PO (20:46)
[2024-08-25] MEDS: MIRTAZAPINE 15 MG TABLET 30 MG PO (20:46)
[2024-08-25 20:58] LABS: Glucose Point of Care 106 mg/dl (65-105)
[2024-08-26] VITALS (19 sets, daily range): BP systolic 81–136; BP diastolic 42–78; PULSE 54–77; RESP 12–20; TEMP 36.4–37; O2SAT 96–100
[2024-08-26 07:36] LABS: Glucose Point of Care 71 mg/dl (65-105)
[2024-08-26] MEDS: ATORVASTATIN 40 MG TABLET PO (09:03)
[2024-08-26] MEDS: SACCHAROMYCES BOULARDII 250 MG CAPSULE PO ×2 (09:03→17:26)
[2024-08-26] MEDS: SERTRALINE HCL 50 MG TABLET 100 MG PO (09:03)
[2024-08-26] MEDS: ACETAMINOPHEN 500 MG TABLET 1000 MG PO (09:03)
[2024-08-26] MEDS: SEVELAMER CARBONATE 800 MG TABLET 2400 MG PO ×3 (09:03→17:26)
[2024-08-26] MEDS: CLOPIDOGREL BISULFATE 75 MG TABLET PO (09:03)
[2024-08-26] MEDS: VITAMIN B CMPLX/VIT C/FOLIC AC 1 CAPSULE 1 CAP PO (09:03)
[2024-08-26] MEDS: PANTOPRAZOLE 40 MG TABLET PO (09:03)
[2024-08-26] MEDS: ARIPiprazole 5 MG TABLET PO (09:03)
[2024-08-26] MEDS: LORATADINE 10 MG TABLET PO (09:03)
[2024-08-26] MEDS: CARBIDOPA/LEVODOPA 25/100 MG TABLET 1 TABLET PO ×2 (09:04→17:26)
--- NOTE | 2024-08-26 10:02 | P.PNIM_ITS ---
Subjective Date/time seen: 08/26/24 10:02 Review of Systems Review of Systems: All systems reviewed & are unremarkable except as noted in HPI and below Objective Data Vital Signs Vital Signs: Vital Signs - 24 hr 08/25/24 13:58 08/25/24 20:39 08/25/24 20:00 Temperature 97.3 F L 98.6 F Pulse Rate 77 71 Respiratory Rate 16 20 Blood Pressure 127/79 94/61 L Pulse Oximetry 99 100 Oxygen Delivery Room Air 08/26/24 06:00 Temperature 97.6 F Pulse Rate 66 Respiratory Rate 20 Blood Pressure 109/60 Pulse Oximetry 96 Oxygen Delivery Intake/Output Intake/Output: Intake & Output 08/23/24 08/24/24 08/25/24 08/26/24 23:59 23:59 23:59 23:59 Intake Total 1160 1809 1280 320 Output Total 1000 0 Balance 5789 312 4822 320 Meds/Results Medications: Active Medications Generic Name Dose Route Start Last Admin Trade Name Freq PRN Reason Stop Dose Admin Acetaminophen 1,000 mg 08/21/24 09:00 08/26/24 09:03 Acetaminophen 500 Mg Tablet PO 09/20/24 08:59 1,000 mg DAILY MARLINE Administration Acetaminophen 650 mg 08/22/24 13:49 08/22/24 14:30 Acetaminophen 325 Mg Tablet PO 650 mg Q6H PRN Administration Pain Albuterol 2.5 mg 08/21/24 05:53 Albuterol Sulfate Neb 2.5 Mg/3 Ml Inh INHALATION Q6HRT PRN sob Aripiprazole 5 mg 08/21/24 09:00 08/26/24 09:03 Aripiprazole 5 Mg Tablet PO 5 mg QAM MARLINE Administration Atorvastatin Calcium 40 mg 08/21/24 09:00 08/26/24 09:03 Atorvastatin 40 Mg Tablet PO 40 mg DAILY MARLINE Administration Calcium Carbonate 200 mg 08/21/24 05:18 Calcium Carbonate (Tums) 500 Mg (200 Mg Elemental) BY MOUTH Q8H PRN Indigestion Carbidopa/Levodopa 1 tablet 08/21/24 09:00 08/26/24 09:04 Carbidopa/Levodopa 25/100 Mg Tablet PO 1 tablet BID MARLINE Administration Cinacalcet 30 mg 08/22/24 09:00 08/25/24 08:28 Cinacalcet 30 Mg Tablet PO 30 mg MoWeFr MARLINE Administration Clopidogrel Bisulfate 75 mg 08/21/24 09:00 08/26/24 09:03 Clopidogrel Bisulfate 75 Mg Tablet PO 75 mg QAM MARLINE Administration Dextrose 12.5 gm 08/21/24 18:13 Dextrose 50% 25 Gm/50 Ml Syringe IV PUSH PRN PRN Hypoglycemia Protocol Docusate Sodium 50 mg 08/21/24 09:00 08/26/24 09:09 Docusate Sodium Liq 100 Mg/10 Ml Udc PO Not Given BID MARLINE Glucagon 1 mg 08/21/24 18:13 Glucagon For Inj 1 Mg Vial IM PRN PRN Hypoglycemia Protocol Glucose 15 gm 08/21/24 18:13 Glucose Oral Gel 15 Gm Of Glucse In 37.5 Gm Tube PO PRN PRN Hypoglycemia Protocol Heparin Sodium (Porcine) 5,000 units 08/21/24 09:00 08/26/24 09:09 Heparin Sodium 5,000 Units/Ml Vial SUB-Q Not Given Q12HR MARLINE Dextrose 1,000 mls @ 100 mls/hr 08/21/24 18:13 Dextrose 5% 1,000 Ml IVPB PRN PRN Hypoglycemia Protocol Albumin Human 50 mls @ 999 mls/hr 08/22/24 06:42 08/24/24 10:54 Albutein IVPB 09/22/24 06:41 999 mls/hr Q10M PRN Administration HYPOTENSION Insulin Aspart 3 - 6 units 08/22/24 08:00 08/26/24 09:08 Insulin Aspart (*Bkc) 100 Units/Ml SUB-Q Not Given TIDWM MARLINE Protocol Loratadine 10 mg 08/22/24 09:00 08/26/24 09:03 Loratadine 10 Mg Tablet PO 10 mg Q48H MARLINE Administration Magnesium Hydroxide 30 ml 08/21/24 05:23 Magnesium Hydroxide Susp 30 Ml Udc PO DAILY PRN Constipation Melatonin 5 mg 08/21/24 21:00 08/25/24 20:46 Melatonin 5 Mg Tablet PO 09/20/24 20:59 5 mg HS MARLINE Administration Midodrine 10 mg 08/21/24 05:21 Midodrine Hcl 10 Mg Tablet PO Q6H PRN Hypotension Mirtazapine 30 mg 08/21/24 21:00 08/25/24 20:46 Mirtazapine 15 Mg Tablet PO 30 mg HS MARLINE Administration Morphine Sulfate 7.5 mg 08/23/24 15:57 08/25/24 20:46 Morphine Sulfate (*Crx) 15 Mg Tab Ir PO 7.5 mg Q4H PRN Administration Pain Rated 4-10 Ondansetron HCl 4 mg 08/21/24 05:04 08/25/24 11:52 Ondansetron Inj 4 Mg/2 Ml Vial IV PUSH 4 mg Q6H PRN Administration Nausea And Vomiting Ondansetron HCl 4 mg 08/21/24 07:56 08/24/24 18:24 Ondansetron Hcl Odt 4 Mg Tablet PO 4 mg Q4H PRN Administration Nausea Pantoprazole Sodium 40 mg 08/21/24 09:00 08/26/24 09:03 Pantoprazole 40 Mg Tablet PO 40 mg QAM MARLINE Administration Polyethylene Glycol 17 gm 08/21/24 08:00 Polyethylene Glycol 3350 17 Gm Powd.Pack PO DAILY PRN Constipation Pregabalin 25 mg 08/21/24 21:00 08/25/24 20:46 Pregabalin (*Crx) 25 Mg Capsule PO 25 mg HS MARLINE Administration Ropinirole HCl 0.75 mg 08/21/24 21:00 08/25/24 20:46 Ropinirole Hcl 0.25 Mg Tablet PO 0.75 mg HS MARLINE Administration Saccharomyces Boulardii 250 mg 08/21/24 09:00 08/26/24 09:03 Saccharomyces Boulardii 250 Mg Capsule PO 250 mg BID MARLINE Administration Senna 8.6 mg 08/21/24 08:04 Sennosides 8.6 Mg Tablet PO DAILY PRN Constipation Sertraline HCl 100 mg 08/21/24 09:00 08/26/24 09:03 Sertraline Hcl 50 Mg Tablet PO 100 mg QAM MARLINE Administration Sevelamer Carbonate 2,400 mg 08/21/24 12:00 08/26/24 09:03 Sevelamer Carbonate 800 Mg Tablet PO 2,400 mg TIDWM MARLINE Administration Vitamin B Complex/Folic Acid 1 cap 08/21/24 09:00 08/26/24 09:03 Vitamin B Cmplx/Vit C/Folic Ac 1 Capsule PO 1 cap QAM [facility] Administration Radiology Results: ITS Impressions Chest X-Ray 08/20/24 23:49 IMPRESSION: 1. Small lung volumes with airspace opacities in the perihilar regions and lower lung zones, consistent with atelectasis versus pneumonia. 2. Shrapnel overlying the neck and right supraclavicular region. Abdomen X-Ray 08/21/24 18:10 IMPRESSION: 1. Normal bowel gas pattern. Labs Labs: Laboratory Results - last 24 hr 08/25/24 08/25/24 08/25/24 10:06 11:28 11:57 WBC 7.0 RBC 4.16 L Hgb 12.7 Hct 40.9 MCV 98.3 MCH 30.5 MCHC 31.1 L RDW 12.7 Plt Count 206 MPV 10.1 Immature Gran % (Auto) 0.3 Neut % (Auto) 62.6 Lymph % (Auto) 22.1 [place] % (Auto) 8.0 Eos % (Auto) 6.6 H Baso % (Auto) 0.4 Lymph # (Auto) 1.55 [place] # (Auto) 0.6 Eos # (Auto) 0.5 H Baso # (Auto) 0.0 Abs Immat Gran (auto) 0.02 Absolute Neuts (auto) 4.4 Absolute Nucleated RBC 0.000 Nucleated RBC % 0.0 Sodium 140 Potassium 4.4 Chloride 102 Carbon Dioxide 30 Anion Gap 8 BUN 26 H Creatinine 5.00 H Estim Creat Clear Calc 18 Estimated GFR 12 L Glucose 79 POC Capillary Glucose 64 L 88 Calcium 9.7 Total Bilirubin 0.6 AST 31 ALT 8 Alkaline Phosphatase 210 H Total Protein 7.0 Albumin 3.8 08/25/24 08/25/24 08/25/24 16:37 17:20 20:43 WBC RBC Hgb Hct MCV MCH MCHC RDW Plt Count MPV Immature Gran % (Auto) Neut % (Auto) Lymph % (Auto) [place] % (Auto) Eos % (Auto) Baso % (Auto) Lymph # (Auto) [place] # (Auto) Eos # (Auto) Baso # (Auto) Abs Immat Gran (auto) Absolute Neuts (auto) Absolute Nucleated RBC Nucleated RBC % Sodium Potassium Chloride Carbon Dioxide Anion Gap BUN Creatinine Estim Creat Clear Calc Estimated GFR Glucose POC Capillary Glucose 73 96 106 H Calcium Total Bilirubin AST ALT Alkaline Phosphatase Total Protein Albumin 08/26/24 07:31 WBC RBC Hgb Hct MCV MCH MCHC RDW Plt Count MPV Immature Gran % (Auto) Neut % (Auto) Lymph % (Auto) [place] % (Auto) Eos % (Auto) Baso % (Auto) Lymph # (Auto) [place] # (Auto) Eos # (Auto) Baso # (Auto) Abs Immat Gran (auto) Absolute Neuts (auto) Absolute Nucleated RBC Nucleated RBC % Sodium Potassium Chloride Carbon Dioxide Anion Gap BUN Creatinine Estim Creat Clear Calc Estimated GFR Glucose POC Capillary Glucose 71 Calcium Total Bilirubin AST ALT Alkaline Phosphatase Total Protein Albumin
--- NOTE | 2024-08-26 10:21 | PCNFU ---
Nutrition Follow-Up Complete: Inadequate oral intake related to loss of appetite, as evidenced by poor intake 20% lunch, pt report of poor appetite goal: Improve PO intake to 75% meals and supplements Patient is progressing towards goal. We will continue current goal. Pt current nutrition is Regular with Glucerna shakes BID. Last recorded weight is 107.5 kg, down from 110.3 kg on admit Bowel Motility: +BM reported 08/25 Labs Reviewed: Cr 5.0, BUN 26, GFR 12 Meds Noted: Protonix, Remeron, Lipitor, Florastor Skin: WNL Additional Notes: Diet order has been liberalized to regular diet. Renal labs improved. Lactose intolerance noted. Oral intake has been improving, will continue diet supplement BID for additional kcal and protein needs. Monitoring intakes, weights, labs, medications, supplement tolerance, plan of care Follow up in 5 days
[2024-08-26 11:44] LABS: Glucose Point of Care 103 mg/dl (65-105)
--- NOTE | 2024-08-26 13:23 | P.DS_ITS ---
DS: Admitting Diagnosis Discharge Date 08/26/2024 Admitting Diagnosis leg pain, no dialysis in one week, weakness DS: Discharge Diagnosis Discharge Diagnosis (1) End-stage renal disease on hemodialysis: Code(s): N18.6 - End stage renal disease; Z99.2 - Dependence on renal dialysis Status: Acute (2) Generalized weakness: Code(s): R53.1 - Weakness Status: Acute (3) Chronic pain syndrome: Code(s): G89.4 - Chronic pain syndrome Status: Acute (4) Anemia: Code(s): D64.9 - Anemia, unspecified Status: Chronic (5) Diabetes mellitus: Code(s): E11.9 - Type 2 diabetes mellitus without complications Status: Chronic (6) Nausea: Code(s): R11.0 - Nausea Status: Acute DS: Summary Hospital Course Hospital Course: Patient presented emergency room because of weakness. She states that she was unable to do dialysis because of lack of transportation. She also was having difficulty getting out of her house but now she says a ramp is being built. Chest x-ray noted and suspect more likely atelectasis or even pulmonary edema from her lack of dialysis than pneumonia. White count was normal. Influenza and COVID negative. She tolerated dialysis on 08/21, 08/22, and 08/24. Nephrology consulted and appreciate their input. She also states she has been out of all her medications for about a week. She was discharged from a residential recently and was not given any medications.Since her gastric bypass, her diabetes has been much better controlled. A1c 4.6%. She was encouraged to be compliant with her dialysis treatments. Patient received a dialysis treatment today. Patient did not want to go to a residential until ramp could be built at her home, patient leaving AMA. Status at Discharge Functional status at discharge: wheelchair bound Overall status at discharge: patient is progressing back to baseline Time Spent with Patient Time attestation: Total time spent providing and/or coordinating discharge services: Time spent: Greater than 30 minutes Exam Const: General: no acute distress Resp: Effort & Inspection: normal respiratory effort Auscultation: clear to auscultation bilaterally Cardio: Rate: regular rate Rhythm: regular rhythm GI: GI Palp: Yes Soft to palpation Auscultation: normal bowel sounds Skin: Other: Warm and dry. small area of thin but intact scar left stump w/o open areas Extrem: Other: bilateral BKA. Thrill and bruit to Rt UE fistula Psych: Affect: normal affect DS: Data Data Completed and Pending Labs on day of discharge: Labs from last 24 hours 08/26/24 08/26/24 08/26/24 13:10 11:41 07:31 WBC Pending RBC Pending Hgb Pending Hct Pending MCV Pending MCH Pending MCHC Pending RDW Pending Plt Count Pending MPV Pending Immature Gran % (Auto) Pending Neut % (Auto) Pending Lymph % (Auto) Pending [place] % (Auto) Pending Eos % (Auto) Pending Baso % (Auto) Pending Lymph # (Auto) Pending [place] # (Auto) Pending Eos # (Auto) Pending Baso # (Auto) Pending Abs Immat Gran (auto) Pending Absolute Neuts (auto) Pending Absolute Nucleated RBC Pending Nucleated RBC % Pending Sodium Pending Potassium Pending Chloride Pending Carbon Dioxide Pending Anion Gap Pending BUN Pending Creatinine Pending Estim Creat Clear Calc Pending Estimated GFR Pending Glucose Pending POC Capillary Glucose 103 71 Calcium Pending Total Bilirubin Pending AST Pending ALT Pending Alkaline Phosphatase Pending Total Protein Pending Albumin Pending 08/25/24 08/25/24 08/25/24 20:43 17:20 16:37 WBC RBC Hgb Hct MCV MCH MCHC RDW Plt Count MPV Immature Gran % (Auto) Neut % (Auto) Lymph % (Auto) [place] % (Auto) Eos % (Auto) Baso % (Auto) Lymph # (Auto) [place] # (Auto) Eos # (Auto) Baso # (Auto) Abs Immat Gran (auto) Absolute Neuts (auto) Absolute Nucleated RBC Nucleated RBC % Sodium Potassium Chloride Carbon Dioxide Anion Gap BUN Creatinine Estim Creat Clear Calc Estimated GFR Glucose POC Capillary Glucose 106 H 96 73 Calcium Total Bilirubin AST ALT Alkaline Phosphatase Total Protein Albumin Discharge Plan Discharge Attending physician on discharge: Halima Shahid Consulting providers: Naomie Batista Discharging Clinician: Gemma Macdonald Anticipated Discharge Date/Time: 08/22/24 13:56 Patient Disposition: Left Against Medical Advice Activity: as tolerated Diet: renal Discharge Instructions: * Check blood pressure 1 to 2 times a day. Record and bring into your doctor for review. Call your doctor if your blood pressure is greater than 180/110. * Take precautions to avoid falls. * Contact your doctor or call 911 and come to the Emergency Room if you have fevers, lightheadedness or other worrisome symptoms. * Avoid NSAIDs (ibuprofen, naproxen, Aleve). Tylenol is safe to take. * Follow-up with your primary care provider in 1-2 weeks. Please call for appointment. * Follow-up with Kidney doctor in 2-3 weeks. Please call for an appointment * Continue dialysis [facility] schedule. Thank you for using [facility] for your health care needs. Patient Instructions: Antibiotic Form, Clopidogrel (By mouth), Pain Management (GEN), Hemodialysis (DC) Stand Alone Forms: General Discharge Information Follow-up/Referrals: Naomie Batista MD [Physician] - Call for Appointment UNKNOWN,DOCTOR [Primary Care Provider] - Call for Appointment Discharge Medications: New albuterol sulfate 90 mcg/actuation HFA aerosol inhaler 2 puff inhalation QID PRN (Reason: shortness of breath or wheezing) Qty: 6.7 0RF acetaminophen 325 mg Tablet 650 mg PO Q6H PRN (Reason: Pain) Qty: 30 0RF Continued Abilify 5 mg tablet 5 mg PO DAILY Qty: 30 1RF Colace Clear 50 mg capsule 50 mg PO BID Qty: 60 1RF Renal Multivitamin Formula tablet 1 tablet PO DAILY Qty: 30 1RF Sinemet tablet 1 tablet PO BID Qty: 60 1RF Rx Instructions: 25-100 mg atorvastatin 40 mg tablet 40 mg PO DAILY Qty: 30 1RF cinacalcet 30 mg tablet 30 mg PO 3XW Qty: 12 1RF Rx Instructions: Sunday, Sunday, Sunday clopidogrel 75 mg tablet 75 mg PO DAILY Qty: 30 1RF midodrine 10 mg tablet 10 mg PO Q6H PRN (Reason: Hypotension) Qty: 10 0RF mirtazapine 30 mg tablet 30 mg PO HS Qty: 30 1RF ropinirole 0.25 mg tablet 0.75 mg PO HS Qty: 90 0RF sertraline 100 mg tablet 100 mg PO DAILY Qty: 30 1RF sevelamer HCl 800 mg tablet 2,400 mg PO TID 30 Days Qty: 270 1RF Discontinued acetaminophen 500 mg tablet 1,000 mg PO DAILY albuterol sulfate 0.083 percent 1 vial inhalation Q6H PRN (Reason: sob) Rx Instructions: 2.5mg/3ml Milk of Magnesia 30 ml liquid 30 ml PO DAILY PRN (Reason: Constipation) calcium carbonate 1 tablet tablet 1 tablet PO Q8H PRN (Reason: Indigestion) guaifenesin liquid 10 ml PO Q6H PRN (Reason: Cough) Rx Instructions: 100mg/5ml loperamide 2 mg capsule 2 mg PO Q4H PRN (Reason: Diarrhea) Rx Instructions: 8mg max per day loratadine 10 mg tablet 10 mg PO Q48H magnesium hydroxide 311 mg tablet 311 mg PO DAILY PRN (Reason: Constipation) melatonin 5 mg tablet 5 mg PO HS Protonix 40 mg tablet 40 mg PO DAILY Saccharomyces boulardii 250 mg capsule 250 mg PO BID morphine 15 mg tablet 15 mg PO Q4H naloxone 4 mg aerosol 4 mg intranasal Q2-3M nystatin 100,000 units powder 1 applic topical Q12H ondansetron 4 mg tablet 4 mg PO Q4H PRN (Reason: Nausea) polyethylene glycol 3350 17 g powder 17 g PO DAILY PRN (Reason: Constipation) pregabalin 25 mg capsule 25 mg PO HS sennosides 8.6 mg tablet 8.6 mg PO DAILY PRN (Reason: Constipation) Date of admission: 08/21/24 03:17 Primary Care Provider: UNKNOWN,DOCTOR Admitting Provider: Tadeo Stanford V. Attending physician on admission: Tadeo Stanford V. Condition: Stable Hospitalist MIPS Heart Failure (Exclusion) Patient has history of Heart Transplant or Left Ventricular Assistive Device?: No IF YES, STOP HERE Heart Failure (Qualifier) Patient has current or prior documentation of LVEF less than or equal to 40%, or mod/servere depressed LVSF?: No IF NO, STOP HERE
[2024-08-26 13:26] LABS: Basophils Absolute Auto 0.1 K/mm3 (0.0-0.1); Basophils Percent Auto 0.7 % (0.2-1.2); Eosinophils Absolute Auto 0.6 K/mm3 (0-0.3); Eosinophils Percent Auto 8.8 % (0-4.4); Hematocrit 39.2 % (37.0-47.0); Immature Granulocyte Absolute 0.02 K/mm3 (0.00-0.031); Immature Granulocyte Percent A 0.3 % (0-0.5); Lymphocytes Percent Auto 26.7 % (18.3-44.2); Mean Corpuscular HGB Conc 30.6 g/dl (32-36); Mean Corpuscular Hemoglobin 30.2 pg (26-34); Mean Corpuscular Volume 98.7 fl (80-100); Mean Platelet Volume 10.3 fl (7.4-10.4); Monocytes Absolute Auto 0.5 K/mm3 (0.1-0.6); Monocytes Percent Auto 6.8 % (2.6-8.5); Neutrophils Absolute Auto 3.8 K/mm3 (1.3-6.7); Neutrophils Percent Auto 56.7 % (45.5-73.1); Platelet Count Result 214 k/mm3 (150-375); Red Blood Count 3.97 M/mm3 (4.2-5.4); Red Cell Distribution Width 12.8 % (11.5-14.5); White Blood Count 6.7 K/mm3 (4.5-10.0)
[2024-08-26 13:40] LABS: Alanine Aminotransferase 10 U/L (6-35); Albumin Level 3.6 g/dL (3.5-5.1); Alkaline Phosphatase 209 U/L (38-126); Anion Gap 9 mmol/L (4-12); Aspartate Amino Transferase 35 U/L (14-36); Bilirubin,Total 0.5 mg/dL (0.2-1.3); Blood Urea Nitrogen 40 mg/dL (7-17); Calcium 8.9 mg/dL (8.4-10.2); Carbon Dioxide 26 mmol/L (22-30); Chloride 103 mmol/L (98-107); Estimated CRCL calculation 13 ml/min; Estimated Glomerular Filt Rate 8; Glucose 154 mg/dL (65-110); Potassium 4.6 mmol/L (3.4-5.0); Sodium 138 mmol/L (137-145)
[2024-08-26] MEDS: ALBUMIN HUMAN 25% 12.5 GM/50ML 50 ML IVPB ×2 (13:51→14:51)
--- NOTE | 2024-08-26 15:01 | P.PNNP_ITS ---
Progress Note: A&P Assessment and Plan (1) End stage renal disease: Code(s): N18.6 - End stage renal disease Status: Acute Assessment and Plan: * HD today due to dialysis schedule (Sunday/Sunday/Sunday) * resume outpatient schedule of Sunday/Sunday/Sunday later this week * follow electrolytes, volume status, and clearance * issues with transportation to/from dialysis center and lack of wheelchair ramp at home residence remain an issue.... (2) Generalized weakness: Code(s): R53.1 - Weakness Status: Acute Assessment and Plan: * possibly due to mild uremia (?) * missed ~ 1 week of dialysis prior to admission * no evidence of infection: * CXR not indicative of pneumonia * viral swabs for influenza/RSV/COVID negatibe * WBC normal * further antibiotics on hold * continue supportive care (3) Abdominal pain: Code(s): R10.9 - Unspecified abdominal pain Status: Resolved Assessment and Plan: * reports this in association with nausea/vomiting/diarrhea * however, symptoms better * KUB noted * related to missed dialysis (?) * continue supportive therapy (4) Chronic pain syndrome: Code(s): G89.4 - Chronic pain syndrome Status: Acute Assessment and Plan: * contributing to #2 (?) * does take chronic narcotics * follow for now (5) Anemia: Code(s): D64.9 - Anemia, unspecified Status: Chronic Assessment and Plan: * due to ESRD * H/H supratherapeutic at this time * hold Retacrit with dialysis * follow trend of H/H (6) Diabetes mellitus: Code(s): E11.9 - Type 2 diabetes mellitus without complications Status: Chronic Assessment and Plan: * diet controlled following gastric bypass surgery * follow accu-cheks * glycemic control per hospitalist Will continue to follow. Subjective Date/time seen: 08/26/24 15:01 Interval history: Follow-up for end stage renal disease on hemodialysis. Tolerating dialysis treatment at the time of my visit (seen on HD at 2:50PM); fluid removal limited due to relative hypotension at this time but no apparent breathing or respiratory issues noted; no events overnight or earlier this morning. Exam Narrative: General: WD/WN female in NAD Heart: normal S1 and S2; no rub Lungs: clear anteriorly Abdomen: soft, nontender, nondistended, positive bowel sounds Extremities: no cyanosis or clubbing; no edema; s/p bilateral BKA Skin: warm and dry Objective Data Vital Signs Vital Signs: Vital Signs Temp Pulse Resp BP Pulse Ox O2 Del Method 08/26/24 15:00 60 97/49 L 08/26/24 14:15 67 87/50 L 08/26/24 13:13 71 100/65 08/26/24 13:00 97.9 F 72 16 100/65 100 08/26/24 09:00 Room Air 08/26/24 06:00 97.6 F 66 20 109/60 96 08/25/24 20:00 Room Air 08/25/24 20:39 98.6 F 71 20 94/61 L 100 Intake/Output Intake/Output: Intake & Output 08/23/24 08/24/24 08/25/24 08/26/24 23:59 23:59 23:59 23:59 Intake Total 1160 1859 1280 490 Output Total 1000 0 1 Balance 3222 462 6855 489 Meds/Results Medications: Active Medications Generic Name Dose Route Start Last Admin Trade Name Freq PRN Reason Stop Dose Admin Acetaminophen 1,000 mg 08/21/24 09:00 08/26/24 09:03 Acetaminophen 500 Mg Tablet PO 09/20/24 08:59 1,000 mg DAILY MARLINE Administration Acetaminophen 650 mg 08/22/24 13:49 08/22/24 14:30 Acetaminophen 325 Mg Tablet PO 650 mg Q6H PRN Administration Pain Albuterol 2.5 mg 08/21/24 05:53 Albuterol Sulfate Neb 2.5 Mg/3 Ml Inh INHALATION Q6HRT PRN sob Aripiprazole 5 mg 08/21/24 09:00 08/26/24 09:03 Aripiprazole 5 Mg Tablet PO 5 mg QAM MARLINE Administration Atorvastatin Calcium 40 mg 08/21/24 09:00 08/26/24 09:03 Atorvastatin 40 Mg Tablet PO 40 mg DAILY MARLINE Administration Calcium Carbonate 200 mg 08/21/24 05:18 Calcium Carbonate (Tums) 500 Mg (200 Mg Elemental) BY MOUTH Q8H PRN Indigestion Carbidopa/Levodopa 1 tablet 08/21/24 09:00 08/26/24 09:04 Carbidopa/Levodopa 25/100 Mg Tablet PO 1 tablet BID MARLINE Administration Cinacalcet 30 mg 08/22/24 09:00 08/25/24 08:28 Cinacalcet 30 Mg Tablet PO 30 mg MoWeFr MARLINE Administration Clopidogrel Bisulfate 75 mg 08/21/24 09:00 08/26/24 09:03 Clopidogrel Bisulfate 75 Mg Tablet PO 75 mg QAM MARLINE Administration Dextrose 12.5 gm 08/21/24 18:13 Dextrose 50% 25 Gm/50 Ml Syringe IV PUSH PRN PRN Hypoglycemia Protocol Docusate Sodium 50 mg 08/21/24 09:00 08/26/24 09:09 Docusate Sodium Liq 100 Mg/10 Ml Udc PO Not Given BID MARLINE Glucagon 1 mg 08/21/24 18:13 Glucagon For Inj 1 Mg Vial IM PRN PRN Hypoglycemia Protocol Glucose 15 gm 08/21/24 18:13 Glucose Oral Gel 15 Gm Of Glucse In 37.5 Gm Tube PO PRN PRN Hypoglycemia Protocol Heparin Sodium (Porcine) 5,000 units 08/21/24 09:00 08/26/24 09:09 Heparin Sodium 5,000 Units/Ml Vial SUB-Q Not Given Q12HR MARLINE Dextrose 1,000 mls @ 100 mls/hr 08/21/24 18:13 Dextrose 5% 1,000 Ml IVPB PRN PRN Hypoglycemia Protocol Albumin Human 50 mls @ 999 mls/hr 08/22/24 06:42 08/26/24 14:51 Albutein IVPB 09/22/24 06:41 999 mls/hr Q10M PRN Administration HYPOTENSION Insulin Aspart 3 - 6 units 08/22/24 08:00 08/26/24 12:26 Insulin Aspart (*Bkc) 100 Units/Ml SUB-Q Not Given TIDWM MARLINE Protocol Loratadine 10 mg 08/22/24 09:00 08/26/24 09:03 Loratadine 10 Mg Tablet PO 10 mg Q48H MARLINE Administration Magnesium Hydroxide 30 ml 08/21/24 05:23 Magnesium Hydroxide Susp 30 Ml Udc PO DAILY PRN Constipation Melatonin 5 mg 08/21/24 21:00 08/25/24 20:46 Melatonin 5 Mg Tablet PO 09/20/24 20:59 5 mg HS MARLINE Administration Midodrine 10 mg 08/21/24 05:21 Midodrine Hcl 10 Mg Tablet PO Q6H PRN Hypotension Mirtazapine 30 mg 08/21/24 21:00 08/25/24 20:46 Mirtazapine 15 Mg Tablet PO 30 mg HS MARLINE Administration Morphine Sulfate 7.5 mg 08/23/24 15:57 08/25/24 20:46 Morphine Sulfate (*Crx) 15 Mg Tab Ir PO 7.5 mg Q4H PRN Administration Pain Rated 4-10 Ondansetron HCl 4 mg 08/21/24 05:04 08/25/24 11:52 Ondansetron Inj 4 Mg/2 Ml Vial IV PUSH 4 mg Q6H PRN Administration Nausea And Vomiting Ondansetron HCl 4 mg 08/21/24 07:56 08/24/24 18:24 Ondansetron Hcl Odt 4 Mg Tablet PO 4 mg Q4H PRN Administration Nausea Pantoprazole Sodium 40 mg 08/21/24 09:00 08/26/24 09:03 Pantoprazole 40 Mg Tablet PO 40 mg QAM MARLINE Administration Polyethylene Glycol 17 gm 08/21/24 08:00 Polyethylene Glycol 3350 17 Gm Powd.Pack PO DAILY PRN Constipation Pregabalin 25 mg 08/21/24 21:00 08/25/24 20:46 Pregabalin (*Crx) 25 Mg Capsule PO 25 mg HS MARLINE Administration Ropinirole HCl 0.75 mg 08/21/24 21:00 08/25/24 20:46 Ropinirole Hcl 0.25 Mg Tablet PO 0.75 mg HS MARLINE Administration Saccharomyces Boulardii 250 mg 08/21/24 09:00 08/26/24 09:03 Saccharomyces Boulardii 250 Mg Capsule PO 250 mg BID MARLINE Administration Senna 8.6 mg 08/21/24 08:04 Sennosides 8.6 Mg Tablet PO DAILY PRN Constipation Sertraline HCl 100 mg 08/21/24 09:00 08/26/24 09:03 Sertraline Hcl 50 Mg Tablet PO 100 mg QAM MARLINE Administration Sevelamer Carbonate 2,400 mg 08/21/24 12:00 08/26/24 12:26 Sevelamer Carbonate 800 Mg Tablet PO 2,400 mg TIDWM MARLINE Administration Vitamin B Complex/Folic Acid 1 cap 08/21/24 09:00 08/26/24 09:03 Vitamin B Cmplx/Vit C/Folic Ac 1 Capsule PO 1 cap QAM MARLINE Administration Radiology Results: ITS Impressions Chest X-Ray 08/20/24 23:49 IMPRESSION: 1. Small lung volumes with airspace opacities in the perihilar regions and lower lung zones, consistent with atelectasis versus pneumonia. 2. Shrapnel overlying the neck and right supraclavicular region. Abdomen X-Ray 08/21/24 18:10 IMPRESSION: 1. Normal bowel gas pattern. Labs Labs: Laboratory Tests 08/26/24 13:10 08/26/24 13:10 Calcium 8.9 Total Bilirubin 0.5 AST 35 ALT 10 Alkaline Phosphatase 209 H Total Protein 7.0 Albumin 3.6
[2024-08-26 17:20] LABS: Glucose Point of Care 69 mg/dl (65-105)
[2024-08-26] MEDS: MORPHINE SULFATE (*CRX) 15 MG TAB IR 7.5 MG PO (17:30)
--- NOTE | 2024-08-26 21:06 | PC.NURSE ---
Pt discharged per EMS. Iv removed, report given to EMS, and pt assisted to stretcher.
== END 2024-08-26 21:23 | disposition left against medical advice (07) | DRG 684 ==
LOC: ANHED 08-21 01:19 → ANHIMU 08-21 03:53 → ANH3MEDSUR 08-22 14:00 → ANHIMU 08-27 14:31
PROVIDERS: General Practice; Internal Medicine; Internal Medicine Nephrology; Admitting Provider Internal Medicine; Emergency Provider Emergency Medicine; Visit Provider Nurse Practitioner Family
DX: N18.6 End stage renal disease (principal); Z99.2 Dependence on renal dialysis; D63.1 Anemia in chronic kidney disease; E11.22 Type 2 diabetes mellitus with diabetic chronic kidney disease; E11.51 Type 2 diabetes mellitus with diabetic peripheral angiopathy without gangrene; F17.290 Nicotine dependence, other tobacco product, uncomplicated; G89.4 Chronic pain syndrome; Z91.158 Patient's noncompliance with renal dialysis for other reason; Z89.512 Acquired absence of left leg below knee; Z89.511 Acquired absence of right leg below knee; Z79.02 Long term (current) use of antithrombotics/antiplatelets; Z20.822 Contact with and (suspected) exposure to COVID-19; Z98.84 Bariatric surgery status; Z99.3 Dependence on wheelchair
CPT/HCPCS: 36415; 71045; 74018; 80053; 80069; 82948; 83036; 83605; 83690; 83735; 84443; 84703; 85025; 85027; 86140; 86706; 87340; 87636; 87641; 93005; 99285; A9270; G0257; J1644; J2405; J7030; P9047; Q5105